=== PATIENT | female | born 1995 | race Caucasian/White ===

== ENCOUNTER 2020-06-13 16:07 | Emergency (ER) | payer MEDICAID, SELFPAY ==
[2020-06-13 18:26] VITALS: BP 131/69; PULSE 94; RESP 16; TEMP 36.9; O2SAT 99; BMI 34.3
--- NOTE | 2020-06-13 18:29 | US_ITS ---
EXAM: Pelvic Ultrasound CLINICAL INDICATION: 24-year-old female with pelvic pain COMPARISON: Pelvic ultrasound 06/27/2019 TECHNIQUE: The pelvis was evaluated using transabdominal and transvaginal imaging. Color Doppler imaging and spectral analysis of the bilateral ovaries was also performed. FINDINGS: Anteverted but retroflexed uterus measures 9.7 x 3.4 x 4.5 cm in longitudinal by AP by transverse dimension. The endometrial stripe is not thickened and measures 0.3 cm. There is a small amount of fluid within the endocervical canal. The left ovary measures approximately 2.5 x 2.8 x 3.1 cm contains a 2.5 cm cyst which demonstrates single thin vascular septation. The right ovary measures approximately 1.8 x 1.5 x 2.4 cm and is normal. Spectral analysis reveals normal arterial and venous waveforms in the bilateral ovaries. There is no free fluid in the pelvis. US/US pelvic ovarian doppler IMPRESSION: 1. Arterial and venous waveforms demonstrated within both ovaries. 2. 2.5 cm cyst of the left ovary which contains a single thin vascular septation. 3. Normal thickness endometrial stripe. There is a small amount of fluid within the endocervical canal.
--- NOTE | 2020-06-13 18:29 | US_ITS ---
EXAM: Pelvic Ultrasound CLINICAL INDICATION: 24-year-old female with pelvic pain COMPARISON: Pelvic ultrasound 06/27/2019 TECHNIQUE: The pelvis was evaluated using transabdominal and transvaginal imaging. Color Doppler imaging and spectral analysis of the bilateral ovaries was also performed. FINDINGS: Anteverted but retroflexed uterus measures 9.7 x 3.4 x 4.5 cm in longitudinal by AP by transverse dimension. The endometrial stripe is not thickened and measures 0.3 cm. There is a small amount of fluid within the endocervical canal. The left ovary measures approximately 2.5 x 2.8 x 3.1 cm contains a 2.5 cm cyst which demonstrates single thin vascular septation. The right ovary measures approximately 1.8 x 1.5 x 2.4 cm and is normal. Spectral analysis reveals normal arterial and venous waveforms in the bilateral ovaries. There is no free fluid in the pelvis. US/US pelvic complete IMPRESSION: 1. Arterial and venous waveforms demonstrated within both ovaries. 2. 2.5 cm cyst of the left ovary which contains a single thin vascular septation. 3. Normal thickness endometrial stripe. There is a small amount of fluid within the endocervical canal.
--- NOTE | 2020-06-13 18:29 | US_ITS ---
EXAM: Pelvic Ultrasound CLINICAL INDICATION: 24-year-old female with pelvic pain COMPARISON: Pelvic ultrasound 06/27/2019 TECHNIQUE: The pelvis was evaluated using transabdominal and transvaginal imaging. Color Doppler imaging and spectral analysis of the bilateral ovaries was also performed. FINDINGS: Anteverted but retroflexed uterus measures 9.7 x 3.4 x 4.5 cm in longitudinal by AP by transverse dimension. The endometrial stripe is not thickened and measures 0.3 cm. There is a small amount of fluid within the endocervical canal. The left ovary measures approximately 2.5 x 2.8 x 3.1 cm contains a 2.5 cm cyst which demonstrates single thin vascular septation. The right ovary measures approximately 1.8 x 1.5 x 2.4 cm and is normal. Spectral analysis reveals normal arterial and venous waveforms in the bilateral ovaries. There is no free fluid in the pelvis. US/US transvaginal IMPRESSION: 1. Arterial and venous waveforms demonstrated within both ovaries. 2. 2.5 cm cyst of the left ovary which contains a single thin vascular septation. 3. Normal thickness endometrial stripe. There is a small amount of fluid within the endocervical canal.
[2020-06-13 18:55] LABS: Glucose Urine UA NEG (NEG); Leukocyte Esterase Urine NEG (NEG); Nitrite Urine NEG (NEG); Specific Gravity - Urine >= 1.030 (1.005-1.025); Urine Blood NEG (NEG); Urine Ketones 5 MG/DL (NEG); Urine Protein NEG (NEG-TRACE)
[2020-06-13 18:56] LABS: Appearance Urine CLEAR; Color Urine YELLOW
[2020-06-13 18:58] LABS: UPreg QC Valid YES; Urine Pregnancy NEGATIVE (NEGATIVE)
[2020-06-13 19:02] LABS: RBC Urine 0 /HPF (0); Squamous Epithelial Cell Urine 2+ /LPF; WBC Urine 0 /HPF (0-4)
[2020-06-13 19:21] LABS: Basophils Percent Auto 0.7 % (0-2); Eosinophils Percent Auto 2.2 % (0-4); Hematocrit 40.6 % (37-47); Hemoglobin 13.3 g/dl (12.0-16.0); Imm Gran Abs Auto 0.02 X10*3/uL (0.00-0.03); Imm Gran Pct Auto 0.2 % (0.0-0.4); Lymphocytes Percent Auto 34.2 % (20-40); Mean Corpuscular HGB Conc 32.8 g/dl (31.0-35.0); Mean Corpuscular Hemoglobin 26.8 pg (27.0-33.0); Mean Corpuscular Volume 81.9 fL (80-98); Monocytes Percent Auto 4.8 % (2-11); Neutrophils Absolute Auto 4.7 X10*3/uL (2.0-8.3); Neutrophils Percent Auto 57.9 % (45-73); Platelet Count 284 X10*3/uL (160-400); Red Blood Count 4.96 X10*6/uL (4.20-5.50); Red Cell Distribution Width 13.8 % (11.0-16.0); White Blood Count 8.1 X10*3/uL (4.8-10.8)
[2020-06-13 19:22] LABS: Basophils Absolute Auto 0.1 X10*3/uL (0.0-0.2); Eosinophils Absolute Auto 0.2 X10*3/uL (0.0-0.4); Lymphocytes Absolute Auto 2.8 X10*3/uL (1.2-4.9); Monocytes Absolute Auto 0.4 X10*3/uL (0.1-1.2)
[2020-06-13 19:23] LABS: MANUAL DIFF FLAG NO
[2020-06-13 19:27] LABS: INTERNATIONAL NORM RATIO 1.1 (0.9-1.1); Prothrombin Time 13.1 SEC (10.8-13.0)
[2020-06-13 19:29] LABS: Partial Thromboplastin Time 31.7 SEC (24.1-38.0)
[2020-06-13 19:51] LABS: Alanine Aminotransferase 21 U/L (0-31); Albumin Level 4.5 g/dL (3.5-5.0); Alkaline Phosphatase 56 U/L (39-117); Anion Gap 12 (12-20); Aspartate Amino Transferase 18 U/L (5-31); Bilirubin Total 0.4 mg/dL (0.0-1.0); Blood Urea Nitrogen 7 mg/dL (9-16); Calcium 9.1 mg/dL (8.4-10.2); Carbon Dioxide 25 mmol/L (22-29); Chloride 105 mmol/L (96-108); Creatinine Clr Calc Pharmacy 99.2; Estimated Glomerular Filt Rate > 60; Glucose Random 92 mg/dL (60-115); Potassium 3.7 mmol/l (3.3-5.1); Sodium 138 mmol/L (135-145); Total Protein 7.4 g/dL (6.5-8.0)
--- NOTE | 2020-06-13 20:26 | ED_ITS ---
HPI - Abdominal Pain General Chief Complaint: Abdominal Pain Stated Complaint: Lower left abdominal pain Time Seen by Provider: 06/13/20 18:29 Source: patient Mode of arrival: ambulatory Limitations: no limitations History of Present Illness HPI narrative: left-sided lower abdomen/pelvic pain for past 2 days. No vaginal discharge or dysuria. No concern for STI. States similar type pain in the past when she was getting control and had ovarian cyst. MD elicited complaint: abdominal pain Onset (ago): day(s) Pain Consistency: intermittent Location: pelvis (Left side) Severity: mild Quality: cramping and aching Radiation: none Migration to: no migration Exacerbating factors: nothing Relieving factors: nothing Associated symptoms: denies other symptoms Related Data Previous Rx's Medication Instructions Recorded naproxen 500 mg PO BID PRN #14 tab 06/13/20 Allergies Allergy/AdvReac Type Severity Reaction Status Date / Time No Known Allergies Allergy Verified 06/13/20 18:33 [No Known Allergies*] Review of Systems Review of Systems Constitutional: No Weight loss, No Fever, No Chills, No Night Sweats, No Fatigue, No Malaise ENT/Mouth: No Hearing loss, No Ear Pain, No Nasal Congestion, No Sinus Pain, No Hoarseness, No sore throat, No Rhinorrhea, No Swallowing Difficulty Eyes: No Eye Pain, No Swelling, No Redness, No Foreign Body, No Discharge, No Vision Changes Cardiovascular: No Chest Pain, No SOB, No Dyspnea on Exertion, No Orthopnea, No Edema, No Palpitations Respiratory: No Cough, No Sputum, No Wheezing, No Smoke Exposure, No Dyspnea Gastrointestinal: No Nausea, No Vomiting, No Diarrhea, No Constipation, + abdominal Pain, No Hematochezia, No Melena Genitourinary: no irregular bleeding, No Dysuria, No Urinary Frequency, No Hematuria, No Urinary Incontinence, No Urgency, No Flank Pain, No Urinary Flow Changes, No Hesitancy Musculoskeletal: No joint pain, No Myalgias, No Joint Swelling Skin: No Skin Lesions, No rash Neuro: No Weakness, No Numbness, No Paresthesias, No Loss of Consciousness, No Dizziness, No Headache Psych: No Social Issues Heme/Lymph: No Bruising, No Bleeding,No Lymphadenopathy Endocrine: No Polyuria, No Polydipsia, No Temperature Intolerance Yes all other systems are reviewed and are negative Physical Exam Vital Signs: Vital Signs: Last Vital Signs Temp 98.4 F 06/13/20 18:26 Pulse 94 06/13/20 18:26 Resp 16 06/13/20 18:26 BP 131/69 06/13/20 18:26 Pulse Ox 99 06/13/20 18:26 Body Mass Index 34.3 Reviewed Const: General: cooperative and healthy appearing; No acute distress or intoxicated appearing Nutritional Appearance: average body habitus Orientation/consciousness: patient oriented x3 HENMT: Head: Yes normal to inspection Ears: hearing grossly normal bilaterally Eyes: General: appearance normal, both eyes and all related structures Visual Muñoz: normal visual muñoz by confrontation Neck: Neck: Yes normal visual inspection and No tender Thyroid: Thyroid normal Chest: Chest palpation & inspection: normal inspection of the chest Resp: Effort & Inspection: normal respiratory effort Cardio: Jugular venous distension: no JVD Rhythm: regular rhythm Heart sounds: S1 normal heart sound present and S2 normal heart sound present GI: Inspection: Yes normal to inspection Palpation (GI): Soft to palpation and nontender Percussion: Yes normal to percussion Auscultation: normal bowel sounds : General: Yes no CVA tenderness Back/Spine/Pelvis: Back: no CVA tenderness Skin: General skin exam: no rashes or lesions noted Neuro: General: patient oriented x3 Extrem: General: Yes normal to inspection Course Course Course Narrative: In review left-sided pelvic pain ongoing for the past feels similar to prior ovarian cyst. No symptoms otherwise no GI symptoms. Will need labs including UA also concerned her. The weekly and would like a preg adrian test. Will check this rule out , ectopic, ovarian cyst torsion less likely. Reevaluation(s) Reevaluation #1: Labs overall stable. UA noninfected. negative. Ultrasound shows 1. Arterial and venous waveforms demonstrated within both ovaries. 2. 2.5 cm cyst of the left ovary which contains a single thin vascular septation. 3. Normal thickness endometrial stripe. There is a small amount of fluid within the endocervical canal. Well nontoxic appearing minimal to no pain. Will discharge home with NSAID aware to avoid this if she is trying to conceive but she states that she has not. 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 Stable for discharge. MDM - Abdominal Pain Lab Data Result diagrams: 06/13/20 19:16 06/13/20 19:16 Labs: Lab Results 06/13/20 06/13/20 06/13/20 Range/Units 18:46 19:16 19:16 WBC 8.1 (4.8-10.8) X10*3/uL RBC 4.96 (4.20-5.50) X10*6/uL Hgb 13.3 (12.0-16.0) g/dl Hct 40.6 (37-47) % MCV 81.9 (80-98) fL MCH 26.8 L (27.0-33.0) pg MCHC 32.8 (31.0-35.0) g/dl RDW 13.8 (11.0-16.0) % Plt Count 284 (160-400) X10*3/uL MPV 10.0 (9.4-12.3) fL Immature Gran % (Auto) 0.2 (0.0-0.4) % Neut % (Auto) 57.9 (45-73) % Lymph % (Auto) 34.2 (20-40) % Miller % (Auto) 4.8 (2-11) % Eos % (Auto) 2.2 (0-4) % Baso % (Auto) 0.7 (0-2) % Lymph # (Auto) 2.8 (1.2-4.9) X10*3/uL Miller # (Auto) 0.4 (0.1-1.2) X10*3/uL Eos # (Auto) 0.2 (0.0-0.4) X10*3/uL Baso # (Auto) 0.1 (0.0-0.2) X10*3/uL Abs Immat Gran (auto) 0.02 (0.00-0.03) X10*3/uL Absolute Neuts (auto) 4.7 (2.0-8.3) X10*3/uL Absolute Nucleated RBC 0.000 (0.0-0.012) X10*3/uL Nucleated RBC % (auto) 0.0 (0.0-0.2) /100WBC PT 13.1 H (10.8-13.0) SEC INR 1.1 (0.9-1.1) APTT 31.7 (24.1-38.0) SEC Sodium (135-145) mmol/L Potassium (3.3-5.1) mmol/l Chloride (96-108) mmol/L Carbon Dioxide (22-29) mmol/L Anion Gap (12-20) BUN (9-16) mg/dL Creatinine (0.5-1.4) mg/dL Estim Creat Clear Calc Estimated GFR Random Glucose (60-115) mg/dL Calcium (8.4-10.2) mg/dL Total Bilirubin (0.0-1.0) mg/dL AST (5-31) U/L ALT (0-31) U/L Alkaline Phosphatase (39-117) U/L Total Protein (6.5-8.0) g/dL Albumin (3.5-5.0) g/dL Urine Color YELLOW Urine Appearance CLEAR Urine pH 6.0 (5.0-8.0) Ur Specific [place] >= 1.030 H (1.005-1.025) Urine Protein NEG (NEG-TRACE) MG/DL Urine Glucose (UA) NEG (NEG) MG/DL Urine Ketones 5 (NEG) MG/DL Urine Blood NEG (NEG) Urine Nitrite NEG (NEG) Ur Leukocyte Esterase NEG (NEG) Urine RBC 0 (0) /HPF Urine WBC 0 (0-4) /HPF Ur Squamous Epith Cells 2+ /LPF Urine Bacteria NONE /LPF Urine Test NEGATIVE (NEGATIVE) 06/13/20 Range/Units 19:16 WBC (4.8-10.8) X10*3/uL RBC (4.20-5.50) X10*6/uL Hgb (12.0-16.0) g/dl Hct (37-47) % MCV (80-98) fL MCH (27.0-33.0) pg MCHC (31.0-35.0) g/dl RDW (11.0-16.0) % Plt Count (160-400) X10*3/uL MPV (9.4-12.3) fL Immature Gran % (Auto) (0.0-0.4) % Neut % (Auto) (45-73) % Lymph % (Auto) (20-40) % Miller % (Auto) (2-11) % Eos % (Auto) (0-4) % Baso % (Auto) (0-2) % Lymph # (Auto) (1.2-4.9) X10*3/uL Miller # (Auto) (0.1-1.2) X10*3/uL Eos # (Auto) (0.0-0.4) X10*3/uL Baso # (Auto) (0.0-0.2) X10*3/uL Abs Immat Gran (auto) (0.00-0.03) X10*3/uL Absolute Neuts (auto) (2.0-8.3) X10*3/uL Absolute Nucleated RBC (0.0-0.012) X10*3/uL Nucleated RBC % (auto) (0.0-0.2) /100WBC PT (10.8-13.0) SEC INR (0.9-1.1) APTT (24.1-38.0) SEC Sodium 138 (135-145) mmol/L Potassium 3.7 (3.3-5.1) mmol/l Chloride 105 (96-108) mmol/L Carbon Dioxide 25 (22-29) mmol/L Anion Gap 12 (12-20) BUN 7 L (9-16) mg/dL Creatinine 0.77 (0.5-1.4) mg/dL Estim Creat Clear Calc 99.2 Estimated GFR > 60 Random Glucose 92 (60-115) mg/dL Calcium 9.1 (8.4-10.2) mg/dL Total Bilirubin 0.4 (0.0-1.0) mg/dL AST 18 (5-31) U/L ALT 21 (0-31) U/L Alkaline Phosphatase 56 (39-117) U/L Total Protein 7.4 (6.5-8.0) g/dL Albumin 4.5 (3.5-5.0) g/dL Urine Color Urine Appearance Urine pH (5.0-8.0) Ur Specific [place] (1.005-1.025) Urine Protein (NEG-TRACE) MG/DL Urine Glucose (UA) (NEG) MG/DL Urine Ketones (NEG) MG/DL Urine Blood (NEG) Urine Nitrite (NEG) Ur Leukocyte Esterase (NEG) Urine RBC (0) /HPF Urine WBC (0-4) /HPF Ur Squamous Epith Cells /LPF Urine Bacteria /LPF Urine Test (NEGATIVE) Discharge Plan Discharge Clinical Impression: Ovarian cyst Patient Disposition: Home, Self-Care Instructions: Ovarian Cyst (ED) Additional Instructions: Home care as instructed Return if any concern or worsening symptoms including worsening abdominal pain, vaginal bleeding, fever. 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
[2020-06-13] MEDS: Acetaminophen 325 MG TABLET 650 MG PO (20:56)
== END 2020-06-13 21:35 | disposition home or self-care (01) ==
PROVIDERS: Nurse Practitioner Primary Care; Emergency Provider Emergency Medicine; PCP Internal Medicine
DX: N83.202 Unspecified ovarian cyst, left side (principal); R10.32 Left lower quadrant pain
CPT/HCPCS: 36415; 76830; 76856; 80053; 81001; 81025; 85025; 85610; 85730; 93975; 99284

== ENCOUNTER 2020-11-27 10:25 | Emergency (ER) | payer MEDICAID, SELFPAY ==
--- NOTE | ~2020-11-27 | XR_ITS ---
EXAMINATION: LUMBAR SPINE AND RIGHT SHOULDER X-RAY CLINICAL INFORMATION: Pain post fall COMPARISON: None TECHNIQUE: 3 views of the lumbar spine and 3 views of the right shoulder FINDINGS: Lumbar spine: Bone alignment is normal. No fracture or dislocation is seen. Disc spaces are normal. Paraspinal soft tissues are normal. Right shoulder: Bone alignment is normal. No fracture or dislocation is seen. The joint spaces are normal. There is soft tissue calcification adjacent to the greater tuberosity suggestive of calcific bursitis or tendinitis. XR/XR shoulder RT min 2V IMPRESSION: Lumbar spine: Unremarkable exam. Right shoulder: No fracture or dislocation. Calcific bursitis or tendinitis.
--- NOTE | ~2020-11-27 | XR_ITS ---
EXAMINATION: LUMBAR SPINE AND RIGHT SHOULDER X-RAY CLINICAL INFORMATION: Pain post fall COMPARISON: None TECHNIQUE: 3 views of the lumbar spine and 3 views of the right shoulder FINDINGS: Lumbar spine: Bone alignment is normal. No fracture or dislocation is seen. Disc spaces are normal. Paraspinal soft tissues are normal. Right shoulder: Bone alignment is normal. No fracture or dislocation is seen. The joint spaces are normal. There is soft tissue calcification adjacent to the greater tuberosity suggestive of calcific bursitis or tendinitis. XR/XR lumbar spine 2-3V IMPRESSION: Lumbar spine: Unremarkable exam. Right shoulder: No fracture or dislocation. Calcific bursitis or tendinitis.
[2020-11-27 10:42] VITALS: BP 122/74; PULSE 87; RESP 18; TEMP 36.6; O2SAT 100; BMI 43.0
[2020-11-27] MEDS: Acetaminophen 325 MG TABLET 650 MG PO (14:16)
[2020-11-27] MEDS: Ibuprofen 600 MG TABLET PO (14:17)
[2020-11-27] MEDS: Lidocaine 4 % Patch ADH..PATCH 1 PATCH TRANSDERMA (14:17)
[2020-11-27 14:52] VITALS: BP 116/58; PULSE 88; RESP 16; TEMP 37; O2SAT 96
--- NOTE | 2020-11-27 15:07 | ED.BACK ---
HPI - Back Pain/Injury General Chief Complaint: Back Pain/Injury <ISABELL Tabares Last Filed: 11/27/20 16:36> Stated Complaint: fall left side <ISABELL Tabares Last Filed: 11/27/20 16:36> Time Seen by Provider: 11/27/20 13:22 <ISABELL Tabares Last Filed: 11/27/20 16:36> Source: patient and secondary connector armature <ISABELL Tabares Last Filed: 11/27/20 16:36> Limitations: language barrier <ISABELL Tabares Last Filed: 11/27/20 16:36> History of Present Illness HPI Narrative: 25-year-old female with no significant past medical history presents to emergency department with back pain after a fall yesterday. She states she tripped and fell approximately 2 steps yesterday while holding her son. States she fell onto her right side. Since then she has been complaining of right shoulder pain and back pain. Immediately after she put some dizziness but then sat down on the dizziness resolved. No preceding symptoms prior to the fall. She denies head injury, LOC. No anticoagulant use. She denies chest injury, abdominal pain incontinence, weakness. She has not taken anything for her pain. <ISABELL Tabares Last Filed: 11/27/20 16:36> Related Data Home Medications: Home Medications Medication Instructions Recorded Confirmed medroxyprogesterone 150 mg/mL 150 mg IM [id number] 12/18/20 intramuscular syringe Previous Rx's Medication Instructions Recorded naproxen 500 mg PO BID PRN #14 tab 06/13/20 ibuprofen 600 mg PO Q6H PRN 7 Days #28 tab 11/27/20 <ISABELL Tabares Last Filed: 11/27/20 16:36> Allergies/Adverse Reactions: Allergies Allergy/AdvReac Type Severity Reaction Status Date / Time No Known Allergies Allergy Verified 12/18/20 16:14 [No Known Allergies*] <ISABELL Tabares Last Filed: 11/27/20 16:36> Review of Systems Constitutional: Constitutional: Denies fever(s) and Denies headache(s) <ISABELL Tabares Last Filed: 11/27/20 16:36> Eyes: Eyes: Reports no additional eye complaints <Tika Mena PA - Last Filed: 11/27/20 16:36> ENT: Denies facial pain and Denies headache(s) <Tika Mena PA - Last Filed: 11/27/20 16:36> Comments: no facial trauma <Tika Mena PA - Last Filed: 11/27/20 16:36> Cardiovascular: Cardiovascular: Denies chest pain, Denies syncope and Denies dyspnea <Tika Mena PA - Last Filed: 11/27/20 16:36> Respiratory: Respiratory: Denies dyspnea <ISABELL Tabares - Last Filed: 11/27/20 16:36> Gastrointestinal: Gastrointestinal: Denies abdominal pain <Tika Mena PA - Last Filed: 11/27/20 16:36> Genitourinary: Genitourinary: Denies urinary incontinence <ISABELL Tabares - Last Filed: 11/27/20 16:36> Musculoskeletal: Comments: right shoulder pain <Tika Mena PA - Last Filed: 11/27/20 16:36> Neurologic: Denies syncope and Denies headache(s) <Tika Mena PA - Last Filed: 11/27/20 16:36> Hematologic/Lymphatic: Hematologic/Lymphatic: Denies easy bleeding <Tika Mena PA - Last Filed: 11/27/20 16:36> [facility] Past Medical History Medical History: Medical History No known health problems <ISABELL Tabares - Last Filed: 11/27/20 16:36> Social History Social History: Social History Alcohol intake: never Patient Tobacco Use Status: Never used Tobacco <ISABELL Tabares - Last Filed: 11/27/20 16:36> Physical Exam Vital Signs: Vital Signs: Last Vital Signs Temp 98.6 F 11/27/20 14:52 Pulse 88 11/27/20 14:52 Resp 16 11/27/20 14:52 BP 116/58 L 11/27/20 14:52 Pulse Ox 96 11/27/20 14:52 Body Mass Index 43.0 <ISABELL Tabares - Last Filed: 11/27/20 16:36> Vital Signs: Last Vital Signs Temp 98.6 F 11/27/20 14:52 Pulse 88 11/27/20 14:52 Resp 16 11/27/20 14:52 BP 116/58 L 11/27/20 14:52 Pulse Ox 96 11/27/20 14:52 Body Mass Index 43.0 <Andrés Vidal MD - Last Filed: 01/05/21 08:55> Const: Other: Sitting upright in the chair <ISABELL Tabares - Last Filed: 11/27/20 16:36> General: cooperative <ISABELL Tabares - Last Filed: 11/27/20 16:36> Orientation/consciousness: patient oriented x3 <ISABELL Tabares - Last Filed: 11/27/20 16:36> HENMT: Head: Yes normocephalic and Yes atraumatic <ISABELL Tabares - Last Filed: 11/27/20 16:36> Eyes: Pupils: Equal, round and reactive pupils present <ISABELL Tabares - Last Filed: 11/27/20 16:36> EOM: EOMs intact bilaterally <ISABELL Tabares - Last Filed: 11/27/20 16:36> Neck: Other: No midline tenderness <ISABELL Tabares - Last Filed: 11/27/20 16:36> Neck: Yes full ROM, Yes trachea midline and Yes supple <ISABELL Tabares - Last Filed: 11/27/20 16:36> Chest: Chest palpation & inspection: normal inspection of the chest <ISABELL Tabares - Last Filed: 11/27/20 16:36> Resp: Effort & Inspection: normal respiratory effort and able to speak in complete sentences <ISABELL Tabares - Last Filed: 11/27/20 16:36> Auscultation: clear to auscultation bilaterally <ISABELL Tabares - Last Filed: 11/27/20 16:36> Cardio: Rate: regular rate <ISABELL Tabares - Last Filed: 11/27/20 16:36> Rhythm: regular rhythm <ISABELL Tabares - Last Filed: 11/27/20 16:36> GI: Inspection: No distended <ISABELL Tabares - Last Filed: 11/27/20 16:36> Palpation (GI): Soft to palpation and nontender <ISABELL Tabares - Last Filed: 11/27/20 16:36> Back/Spine/Pelvis: Other: Diffuse tenderness throughout spine seems to be more focal to her lower spine, no step-offs, no ecchymosis, no obvious deformity, able to sit upright and lying back flat <ISABELL Tabares - Last Filed: 11/27/20 16:36> Skin: Other: Intact <ISABELL Tabares - Last Filed: 11/27/20 16:36> Neuro: Other: Steady gait <ISABELL Tabares - Last Filed: 11/27/20 16:36> General: patient oriented x3 <ISABELL Tabares - Last Filed: 11/27/20 16:36> Cranial nerves: Yes Equal, round and reactive pupils present <ISABELL Tabares - Last Filed: 11/27/20 16:36> Extrem: Other: Right upper extremity-positive palpable radial pulse, limited range of motion of the right shoulder secondary to pain, no obvious deformities, no ecchymosis, no swelling, compartment soft, neurovascularly intact <ISABELL Tabares - Last Filed: 11/27/20 16:36> Psych: Affect: normal affect <ISABELL Tabares - Last Filed: 11/27/20 16:36> Course Course Course Narrative: The patient states her pain has improved with the medications. Her lumbar plain film was negative. Her shoulder film shows calcific bursitis or tendonitis, no fracture, will give supportive management. <ISABELL Tabares Last Filed: 11/27/20 16:36> I have reviewed the chart <Andrés Vidal MD - Last Filed: 01/05/21 08:55> Reevaluation(s) Reevaluation #1: FINDINGS: Lumbar spine: Bone alignment is normal. No fracture or dislocation is seen. Disc spaces are normal. Paraspinal soft tissues are normal. Right shoulder: Bone alignment is normal. No fracture or dislocation is seen. The joint spaces are normal. There is soft tissue calcification adjacent to the greater tuberosity suggestive of calcific bursitis or tendinitis. XR/XR shoulder RT min 2V IMPRESSION: Lumbar spine: Unremarkable exam. Right shoulder: No fracture or dislocation. Calcific bursitis or tendinitis. <ISABELL Tabares Last Filed: 11/27/20 16:36> MDM - Back Pain/Injury MDM Narrative Medical decision making narrative: 25-year-old female presenting to the emergency department after fall yesterday complaining of right shoulder and back pain Vital stable, nontoxic appearing, hemodynamically stable Patient denies hitting her head, no LOC, no anticoagulant use, lower concern for intracranial pathology. She has diffuse tenderness to her spine but it seems to be more localized to her lumbar spine therefore plane from a plain film. She has no red flags for a portal pressure. For plan for plain film of her right shoulder due to pain with movement. Her compartments were soft. She is otherwise neurovascularly intact. No evidence of trauma to her chest or abdomen. Her pelvis is stable. Lower extremities are atraumatic. She has not taken anything for her pain, will give her ibuprofen and Tylenol. She denies chance of , she is on a Depo injection for contraception. Fall was mechanical, not syncope, no preceding symptoms prior to the fall. <ISABELL Tabares - Last Filed: 11/27/20 16:36> Discharge Plan Discharge Clinical Impression: Fall, Back pain, Sprain of shoulder, right <ISABELL Tabares Last Filed: 11/27/20 16:36> Patient Disposition: Home, Self-Care <ISABELL Tabares Last Filed: 11/27/20 16:36> Instructions: Back Pain (ED), Shoulder Pain (ED) <ISABELL Tabares Last Filed: 11/27/20 16:36> Additional Instructions: Your x-rays of your lower back right shoulder did not show any broken bones. Please return if your symptoms worsen, worsening pain, difficulty walking, numbness, weakness, tingling, loss of bladder or bowel function, chest pain, abdominal pain, or any other concerning symptoms. You are probably going to feel sore today, please get plenty of rest. You may use hot showers to help relax her muscles. Take Tylenol or ibuprofen as directed for pain if needed. <ISABELL Tabares - Last Filed: 11/27/20 16:36> Prescriptions: New ibuprofen 600 mg tablet 600 mg PO Q6H PRN (Reason: pain) 7 Days Qty: 28 RF: 0 No Action naproxen 500 mg tablet 500 mg PO BID PRN (Reason: pain) Qty: 14 RF: 0 medroxyprogesterone [Depo-Provera] 150 mg/mL syringe 150 mg IM [id number] RF: 0 <ISABELL Tabares - Last Filed: 11/27/20 16:36> Interventions: ED Discharge Assessment Last Done: 11/27/20 15:35 <ISABELL Tabares - Last Filed: 11/27/20 16:36> Discharge Date/Time: 11/27/20 15:35 <ISABELL Tabares - Last Filed: 11/27/20 16:36> Print Language: Georgian <ISABELL Tabares - Last Filed: 11/27/20 16:36>
== END 2020-11-27 15:35 | disposition home or self-care (01) ==
PROVIDERS: Emergency Provider Emergency Medicine; PCP Internal Medicine
DX: S43.401A Unspecified sprain of right shoulder joint, initial encounter (principal); M54.9 Dorsalgia, unspecified; W01.0XXA Fall on same level from slipping, tripping and stumbling without subsequent striking against object, initial encounter; Y93.9 Activity, unspecified; Y92.9 Unspecified place or not applicable; Y99.9 Unspecified external cause status
CPT/HCPCS: 72100; 73030; 99283; 99284

== ENCOUNTER → 2020-12-18 16:14 | Outpatient (BNVA) | payer MEDICAID, SELFPAY | PROVIDERS: PCP Internal Medicine; Visit Provider Obstetrics & Gynecology ==

== ENCOUNTER 2021-03-28 11:07 | Outpatient (REF) | payer MEDICAID, SELFPAY ==
--- NOTE | ~2021-03-28 | US_ITS ---
EXAMINATION: US PELVIC AND TRANSVAGINAL CLINICAL INFORMATION: Ovarian cyst. Vaginal bleeding. LMP June 2020. Patient on control. COMPARISON: Most recent pelvic ultrasound dated 06/13/2020 TECHNIQUE: Ultrasound of the pelvis is performed using both transabdominal and transvaginal transducers along with Doppler. Transvaginal imaging is performed due to inadequate visualization transabdominally. FINDINGS: Uterus: The uterus is anteverted and retroflexed and measures 10.3 x 3.6 x 4.9 cm. The double wall endometrial thickness is 0.6 mm. The uterus is smooth in contour and has normal myometrial echogenicity. No visible fibroid. Adnexa: Both ovaries are visualized. There is normal color-flow to the adnexa. There is no ovarian torsion. There is no pelvic ascites or fluid collection. Right ovarian follicles. Left ovarian probable dominant follicle measuring up to 1.4 cm. A left ovarian simple cyst versus dominant follicle previously measured up to 2.5 cm. Right ovary measures 3 x 1.7 x 2.3 cm. Right ovarian volume of 6.1 mL. Left ovary measures 2.7 x 1.5 x 1.7 cm. Left ovarian volume of 3.6 mL. US/US pelvic and transvaginal IMPRESSION: 1. Left ovarian dominant follicle measuring up to 1.4 cm. A previously seen left ovarian dominant follicle versus simple cyst measured 2.5 cm. 2. Otherwise unremarkable examination.
== END 2021-03-28 11:08 | disposition home or self-care (01) ==
LOC: HO.US 11:07
PROVIDERS: PCP Internal Medicine; Visit Provider Obstetrics & Gynecology
DX: N83.299 Other ovarian cyst, unspecified side (principal)
CPT/HCPCS: 76830; 76856

== ENCOUNTER → 2021-04-11 14:47 | Outpatient (BNVA) | payer MEDICAID, SELFPAY | PROVIDERS: Visit Provider Obstetrics & Gynecology ==

== ENCOUNTER 2021-12-19 13:51 | Outpatient (REF) | payer MEDICAID, SELFPAY ==
--- NOTE | ~2021-12-19 | US_ITS ---
EXAMINATION: US PELVIS CLINICAL INFORMATION: Left ovarian cyst COMPARISON: Pelvic ultrasound 03/28/2021 TECHNIQUE: Ultrasound of the pelvis is performed using both transabdominal and transvaginal transducers along with Doppler. Transvaginal imaging is performed due to inadequate visualization transabdominally. FINDINGS: Uterus: The uterus is anteverted and measures 11.8 x 3.5 x 7.0 cm. The double wall endometrial thickness is 5 mm. The uterus is smooth in contour and has normal myometrial echogenicity. No visible fibroid. Adnexa: Both ovaries are visualized. There is normal color flow to the adnexa. There is no ovarian torsion. There is no pelvic ascites or fluid collection. Right ovary measures 2.8 x 1.8 x 2.4 cm. Left ovary measures 3.4 x 2.4 x 2.1 cm. A 2 cm dominant follicle is seen. US/US pelvic and transvaginal IMPRESSION: A 2 cm dominant left ovarian follicle, for which no follow-up imaging is recommended.
== END 2021-12-19 13:52 | disposition home or self-care (01) ==
LOC: HO.US 13:51
PROVIDERS: Visit Provider Internal Medicine
DX: N83.202 Unspecified ovarian cyst, left side (principal)
CPT/HCPCS: 76830; 76856

== ENCOUNTER 2022-05-18 13:17 | Emergency (ER) | payer MEDICAID, SELFPAY ==
[2022-05-18 13:29] VITALS: BP 133/67; PULSE 120; RESP 18; TEMP 37.4; O2SAT 100; BMI 40.4
--- NOTE | 2022-05-18 13:29 | ED.FEVER ---
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 No difficulty breathing, chest pain, vomiting, diarrhea, headache, skin rash, neck pain or stiffness. Patient is here with children who have similar symptoms. Immunizations are up-to-date Related Data Home Medications Medication Instructions Recorded Confirmed medroxyprogesterone 150 mg/mL 150 mg IM [id number] 12/18/20 intramuscular syringe (Depo-Provera) Previous Rx's Medication Instructions Recorded ibuprofen 600 mg tablet 600 mg PO Q6H PRN fever or pain 05/18/22 #30 tabs oseltamivir 75 mg capsule (Tamiflu) 75 mg PO Q12H 5 days #10 caps 05/18/22 Allergies Allergy/AdvReac Type Severity Reaction Status Date / Time No Known Allergies Allergy Verified 04/11/21 14:48 [No Known Allergies*] Review of Systems Review of Systems: Yes all other systems are reviewed and are negative Constitutional: Constitutional: Reports no additional constitutional complaints, Denies body ache(s), Denies chills, Reports fever(s), Denies headache(s) and Denies weakness Eyes: Eyes: Reports no additional eye complaints and Denies change in vision ENT: Reports system reviewed and no additional complaints, except as documented, Denies dizziness, Denies headache(s), Denies nasal congestion, Denies nasal discharge and Denies neck pain Cardiovascular: Cardiovascular: Reports no additional cardiovascular complaints, Denies chest pain, Denies leg edema and Denies dyspnea Respiratory: Respiratory: Reports no additional respiratory complaints, Reports cough and Denies dyspnea Gastrointestinal: Gastrointestinal: Reports no additional gastrointestinal complaints, Denies abdominal pain, Denies diarrhea, Denies nausea and Denies vomiting Genitourinary: Genitourinary: Reports no additional female genitourinary complaints and Denies urinary incontinence Musculoskeletal: Musculoskeletal: Reports no additional musculoskeletal complaints, Reports back pain, Denies arthralgias, Denies joint swelling, Denies neck pain, Denies numbness and Denies tingling Integumentary/Breasts: Skin/Breast: Reports system reviewed and no additional complaints, except as docu and Denies rash Neurologic: Denies Abnormal speech present, Denies dizziness, Denies headache(s), Denies numbness, Denies tingling and Denies weakness PMFSH Past Medical History Attestation statement: The following information was validated with the patient. Source: old records reviewed and nursing notes reviewed Medical History No known health problems Surgical History Hx of appendectomy Hx of section Social History Social History Alcohol intake: never Patient Tobacco Use Status: Never used Tobacco Advance Directives: No Advance Directives Information Provided: No Physical Exam Vital Signs: Vital Signs: Last Vital Signs Temp 99.3 F 05/18/22 13:29 Pulse 120 H 05/18/22 13:29 Resp 18 05/18/22 13:29 BP 133/67 05/18/22 13:29 Pulse Ox 100 05/18/22 13:29 O2 Del Method 05/18/22 13:29 BMI result Body Mass Index 40.4 Const: General: cooperative, healthy appearing, comfortable and no acute distress Orientation/consciousness: patient oriented x3 Limitations: no limitations HEENT: Head: Yes normal to inspection Ears: hearing grossly normal bilaterally General nose exam: Normal external nose present Face and sinus: Yes normal facial exam Mouth: Normal oral and palatal mucosa present Throat: Yes posterior oropharynx normal Eyes: General: appearance normal, both eyes and all related structures Pupils: Equal, round and reactive pupils present Neck: Neck: Yes normal visual inspection Chest: Chest palpation & inspection: normal inspection of the chest Resp: Effort & Inspection: normal respiratory effort Auscultation: clear to auscultation bilaterally Cardio: Rate: regular rate Rhythm: regular rhythm Peripheral pulses: Peripheral pulses 2+ throughout GI: Inspection: Yes normal to inspection Palpation (GI): Soft to palpation and nontender Auscultation: normal bowel sounds Back/Spine/Pelvis: Thoracic/Lumbar Spine: thoracic and lumbar spine normal to inspection Skin: General skin exam: no rashes or lesions noted Neuro: General: patient oriented x3, no focal motor deficits and normal sensation to monofilament Cranial nerves: Yes Equal, round and reactive pupils present Cognition (Neuro): normal cognition Speech: No Abnormal speech present Gait exam (Neuro): Normal gait present Motor exam (neuro): 5/5 motor strength present throughout Extrem: General: Yes normal to inspection Course Course Course Narrative: This is rapid medical exam. Deferred additional HPI, ROS, PE to primary provider. 26 yo female here with cough, fever, congestion x several days. VSS. Will send testing for flu, covid, rsv. Reevaluation(s) Reevaluation #1: Testing for flu a is positive. All of the testing is negative. Patient initially complaining of abdominal pain and triage. Abdomen is soft nontender. Patient reports pain is mainly in her back which she describes as diffuse back tenderness. No midline tenderness, step-offs deformities. Pain is worsened with flexion and extension of the spine. Patient also complaining of diffuse body aches. Likely secondary to viral illness. Reviewed worrisome signs symptoms of when to return to the emergency room. Comfortable plan for discharge home. Mom wants Tamiflu. Aware of side effects. MDM - Fever MDM Narrative Medical decision making narrative: 26-year-old female here with fever, cough, body aches, back pain for 2 days. Patient here with children who have similar symptoms. Will send testing for flu, COVID, RSV Medical Records Attestation: I reviewed the patient's medical records. Lab Data Attestation: I reviewed the patient's lab results. Labs: Lab Results 05/18/22 Range/Units 13:34 Influenza Type A (PCR) POSITIVE A (Negative) Influenza Type B (PCR) NEGATIVE (Negative) RSV RNA Qual (PCR) NEGATIVE (Negative) SARS-CoV-2 RNA (RT-PCR) NEGATIVE (Negative) Discharge Plan Discharge Clinical Impression: Influenza A Patient Disposition: Home, Self-Care Instructions: Influenza (ED) Additional Instructions: Alterne motrin o tylenol para el dolor o la fiebre. Aumenta los l?luiz vidales. Prescriptions: New oseltamivir [Tamiflu] 75 mg capsule 75 mg PO Q12H 5 Days Qty: 10 0RF ibuprofen 600 mg tablet 600 mg PO Q6H PRN (Reason: fever or pain) Qty: 30 0RF No Action medroxyprogesterone [Depo-Provera] 150 mg/mL syringe 150 mg IM [id number] Referrals: Rubia Ramirez MD [Primary Care Provider] - 1 week Interventions: ED Discharge Assessment Last Done: 05/18/22 14:44 Discharge Date/Time: 05/18/22 14:44 Print Language: Anguill[place]
[2022-05-18 14:21] LABS: Influenza A PCR POSITIVE (Negative); Influenza B PCR NEGATIVE (Negative); Resp Syncy Virus RNA Qual PCR NEGATIVE (Negative); SARS COV2 PCR INHOUSE NEGATIVE (Negative)
== END 2022-05-18 14:44 | disposition home or self-care (01) ==
PROVIDERS: Nurse Practitioner Family; Emergency Provider Emergency Medicine; PCP Internal Medicine
DX: J10.1 Influenza due to other identified influenza virus with other respiratory manifestations (principal); R05.9 Cough, unspecified; M54.50 Low back pain, unspecified; R50.9 Fever, unspecified; M79.10 Myalgia, unspecified site; Z20.822 Contact with and (suspected) exposure to COVID-19; Z79.899 Other long term (current) drug therapy
CPT/HCPCS: 0241U; 99282; 99283

== ENCOUNTER 2023-02-02 09:26 | Outpatient (REF) | payer MEDICAID, SELFPAY ==
[2023-02-02 12:30] LABS: HBS Num1 38.21 mIU/mL (0-7.99); HBc Num1 0.12 S/CO (0.00-0.79); HIV AB/AG Nonreactive (Nonreactive); HIV Num 1 0.05 S/CO (0.00-0.99); Hepatitis A Antibody IgM 0.22 Index (0-0.79); Hepatitis B Core Antibody Nonreactive (Nonreactive); Hepatitis B Surface Antigen Negative (Negative); ~HepC Num1 0.05 S/CO (0.00-0.79); ~Hepatitis A Antibody IgM Nonreactive (Nonreactive); ~Hepatitis B Surface Antibody REACTIVE (Nonreactive); ~Hepatitis C Antibody Nonreactive (Nonreactive)
[2023-02-02 12:49] LABS: Syphilis Screen Nonreactive (Nonreactive)
[2023-02-02 18:53] LABS: CT PCR NOT DETECTED (Not Detect.); NG PCR NOT DETECTED (Not Detect.)
[2023-02-03 10:05] LABS: BV Int Neg Control Negative (Negative); BV Int Pos Control Positive (Positive)
== END 2023-02-02 09:27 | disposition home or self-care (01) ==
LOC: HO.HHCL 09:26
PROVIDERS: Visit Provider Internal Medicine
DX: Z11.4 Encounter for screening for human immunodeficiency virus [HIV] (principal); Z11.3 Encounter for screening for infections with a predominantly sexual mode of transmission; Z72.51 High risk heterosexual behavior
CPT/HCPCS: 0353U; 36415; 86704; 86706; 86709; 86780; 86803; 87340; 87389; 87480; 87510; 87660

== ENCOUNTER 2023-04-16 17:42 | Emergency (ER) | payer MEDICAID, SELFPAY ==
--- NOTE | ~2023-04-16 | US_ITS ---
EXAMINATION: US PELVIS CLINICAL INFORMATION: Left lower quadrant pain; heavy menses; the last menstrual period began 3 weeks prior, with continuous bleeding. COMPARISON: Pelvic ultrasound dated 12/19/2021. TECHNIQUE: Ultrasound of the pelvis is performed using both transabdominal and transvaginal transducers along with Doppler. Transvaginal imaging is performed due to inadequate visualization transabdominally. FINDINGS: Uterus: The uterus is anteverted and retroflexed. The uterus measures 8.3 x 3.7 x 5.2 cm. The double wall endometrial thickness is 4 mm. The uterus is smooth in contour and has normal myometrial echogenicity. No visible fibroid. Adnexa: Both ovaries are visualized. The ovaries show normal Doppler flow. There is normal color flow to the adnexa. There is no ovarian torsion. There is no pelvic ascites or fluid collection. Right ovary measures 2.9 x 2.3 x 1.5 cm, volume 5.2 mL. Left ovary measures 2.6 x 1.5 x 1.8 cm, volume 3.7 mL. US/US pelvic and transvaginal IMPRESSION: Unremarkable examination.
--- NOTE | 2023-04-16 17:55 | ED_ITS ---
HPI - General Adult General Chief complaint: Vaginal Bleeding Stated complaint: heavy vaginal bleeding Time Seen by Provider: 04/16/23 20:10 Source: patient, RN notes reviewed and old records reviewed Mode of arrival: ambulatory Limitations: no limitations History of Present Illness HPI narrative: 27-year-old female who denies any past medical history presents for evaluation of left lower abdominal pain and vaginal bleeding Patient states that she has been having vaginal bleeding for the last week She states that she got her Depo-Provera shot 1 week ago. She has been on this medication for over a year She also complains of lower abdominal pain on the left Denies any fevers, chills, abnormal vaginal discharge with the exception of the bleeding Denies any new sexual partners or concern for sexually 7 infections Denies any history abdominal surgery Related Data Home Medications Medication Instructions Recorded Confirmed medroxyprogesterone 150 mg/mL 150 mg IM [id number] 12/18/20 intramuscular syringe (Depo-Provera) Previous Rx's Medication Instructions Recorded ibuprofen 600 mg tablet 600 mg PO Q6H PRN fever or pain 05/18/22 #30 tabs oseltamivir 75 mg capsule (Tamiflu) 75 mg PO Q12H 5 days #10 caps 05/18/22 naproxen 500 mg tablet 500 mg PO BID PRN pain #20 tabs 04/16/23 Allergies Allergy/AdvReac Type Severity Reaction Status Date / Time No Known Allergies Allergy Verified 04/11/21 14:48 [No Known Allergies*] Review of Systems 2 Constitutional: Constitutional: Denies chills and Denies fever(s) Eyes: Eyes: Denies blurry vision Cardiovascular: Cardiovascular: Denies chest pain and Denies dyspnea Respiratory: Respiratory: Denies cough and Denies dyspnea Gastrointestinal: Gastrointestinal: Reports abdominal pain, Denies nausea and Denies vomiting Genitourinary: Genitourinary: Reports menorrhagia Musculoskeletal: Musculoskeletal: Denies back pain PMFSH Past Medical History Medical History No known health problems Surgical History Hx of appendectomy Hx of section Social History Social History Alcohol intake: never Patient Tobacco Use Status: Never used Tobacco Advance Directives: No Advance Directives Information Provided: No Physical Exam ED Vital Signs: Vital Signs - 24 hr 04/16/23 17:56 04/16/23 20:22 Temperature 98.3 F Pulse Rate 120 H 95 Respiratory Rate 16 16 Blood Pressure 108/72 110/76 Pulse Oximetry 97 97 Oxygen Delivery Method Room Air Room Air BMI result Body Mass Index 36.3 Const General: healthy appearing, comfortable, no acute distress, alert and awake Nutritional Appearance: well nourished Orientation/consciousness: patient oriented x3 HENMT Head: Yes normocephalic and Yes atraumatic Eyes Eyelids: Yes eyelids normal Conjunctivae: conjunctivae normal Sclerae: sclerae normal Corneas: corneas normal Pupils: Equal, round and reactive pupils present EOM: EOMs intact bilaterally Neck Neck: Yes full ROM Resp Effort & Inspection: normal respiratory effort, able to speak in complete sentences and not labored GI Inspection: No distended Palpation (GI): Soft to palpation, not firm, Tenderness to palpation present (GI) in the LLQ and suprapubicly, no guarding and not rigid General: Yes deferred Skin General skin exam: elasticity normal Neuro General: patient oriented x3 Cranial nerves: Yes Equal, round and reactive pupils present and Yes Bilaterally intact EOM present Cognition (Neuro): normal cognition Extrem Other: Moving all extremities well without any obvious deformities Course Course Course Narrative: This is an RME: Additional HPI, ROS, PE not included below will be deferred to primary provider. 27 yo f presents w/ 1 week vaginal bleedin. On deepo shot last shot one week ago recieved it late. If she exerts herself she finds herself having worse vagnal bleeding also complain of L sided abd pain. Going through 4 pads/hour completely saturated. Vitals hypotensive & tachycardic Medications Administered Discontinued Medications Generic Name Dose Route Start Last Admin Trade Name Freq PRN Reason Stop Dose Admin Ketorolac Tromethamine 30 mg 04/16/23 20:46 04/16/23 20:54 Ketorolac Tromethamine 30 Mg/Ml Vial IM 04/16/23 20:47 Not Given ONCE ONE Tramadol HCl 50 mg 04/16/23 21:01 04/16/23 21:23 Tramadol Hcl 50 Mg Tablet PO 04/16/23 21:02 50 mg ONCE ONE Administration Medical Decision Making Medical Decision Making [facility] Narrative: Patient presenting for evaluation of lower abdominal/pelvic pain with heavy vaginal bleeding. She was given her oral contraception injection 1 week ago at the onset of her symptoms. This is done her primary office she does not have an OBGYN. The patient is not . She has no fevers, chills, abnormal vaginal discharge or new sexual partners. This is less likely PID. Patient declined pelvic examination in the ED. she has a history of complex ovarian cyst. With an ultrasound to evaluate for ovarian cyst and help rule out ovarian torsion. She is not . Labs do not show any indication of UTI. Differential Diagnosis Differential Diagnoses: The differential diagnosis associated with the presentation includes Pelvic pain Dysmenorrhea Ovarian cyst PID less likely Lab Data [facility] Lab Attestation statement: I reviewed the patient's lab results. No leukocytosis or anemia. Normal platelet count. No significant electrolyte abnormalities 04/16/23 18:24 04/16/23 18:24 Labs: Lab Results 04/16/23 Range/Units 18:24 WBC 7.8 (4.8-10.8) X10*3/uL RBC 5.36 (4.20-5.50) X10*6/uL Hgb 14.7 (12.0-16.0) g/dl Hct 43.6 (37.0-47.0) % MCV 81.3 (80.0-98.0) fL MCH 27.4 (27.0-33.0) pg MCHC 33.7 (31.0-35.0) g/dl RDW 13.2 (11.0-16.0) % Plt Count 279 (160-400) X10*3/uL MPV 10.2 (9.4-12.3) fL Immature Gran % (Auto) 0.3 (0.0-0.4) % Neut % (Auto) 71.4 (45-73) % Lymph % (Auto) 23.7 (20-40) % [place] % (Auto) 3.7 (2-11) % Eos % (Auto) 0.4 (0-4) % Baso % (Auto) 0.5 (0-2) % Lymph # (Auto) 1.8 (1.2-4.9) X10*3/uL [place] # (Auto) 0.3 (0.1-1.2) X10*3/uL Eos # (Auto) 0.0 (0.0-0.4) X10*3/uL Baso # (Auto) 0.0 (0.0-0.2) X10*3/uL Abs Immat Gran (auto) 0.02 (0.00-0.03) X10*3/uL Absolute Neuts (auto) 5.5 (2.0-8.3) x10*3/uL Absolute Nucleated RBC 0.000 (0.0-0.012) X10*3/uL Nucleated RBC % (auto) 0.0 (0.0-0.2) /100WBC Sodium 141 (135-145) mmol/L Potassium 3.7 (3.3-5.1) mmol/L Chloride 110 H (96-108) mmol/L Carbon Dioxide 22 (22-29) mmol/L Anion Gap 13 (12-20) BUN 9 (9-16) mg/dL Creatinine 0.72 (0.5-1.4) mg/dL Estim Creat Clear Calc 106.5 Estimated GFR > 60 Random Glucose 115 (60-115) mg/dL Calcium 9.7 D (8.4-10.2) mg/dL Magnesium 2.3 (1.6-2.6) mg/dL Total Bilirubin 0.6 (0.0-1.0) mg/dL AST 13 (5-31) U/L ALT 7 (0-31) U/L Alkaline Phosphatase 42 (39-117) U/L Total Protein 7.5 (6.5-8.0) g/dL Albumin 4.5 (3.5-5.0) g/dL Beta HCG, Quant < 2 mIU/mL Urine Color Dark Yellow Urine Appearance Cloudy Urine pH 5.5 (5.0-9.0) Ur Specific [place] >= 1.030 H (1.005-1.025) Urine Protein Trace (Neg-Trace) mg/dL Urine Glucose (UA) Negative (Negative) mg/dL Urine Ketones Trace (Negative) mg/dL Urine Blood Moderate (2+) H (Negative) Urine Nitrite Negative (Negative) Ur Leukocyte Esterase Negative (Negative) Urine RBC 0-2 (0-2) /HPF Urine WBC 0-5 (0-5) /HPF Ur Squamous Epith Cells 3-5 (0-2) /HPF Urine Bacteria Trace (None Seen) Hyaline Casts 0-2 (0-2) /LPF Blood Type AB Positive Antibody Screen NEGATIVE Radiology Impression Discussion of test interpretation with radiology: I have reviewed the radiologist's reading. Radiologist Impression: Unremarkable examination Discharge Plan Discharge Clinical Impression: Dysmenorrhea Patient Disposition: Home, Self-Care Instructions: Dysmenorrhea (ED) Additional Instructions: Your blood work and ultrasound were reassuring today. You may follow-up with your PCP You may also follow-up with OBGYN, doctors are Dr Gilmore Use naproxen as needed for pain. Return for new or worsening symptoms Prescriptions: New naproxen 500 mg tablet 500 mg PO BID PRN (Reason: pain) Qty: 20 0RF No Action oseltamivir [Tamiflu] 75 mg capsule 75 mg PO Q12H 5 Days Qty: 10 0RF ibuprofen 600 mg tablet 600 mg PO Q6H PRN (Reason: fever or pain) Qty: 30 0RF medroxyprogesterone [Depo-Provera] 150 mg/mL syringe 150 mg IM [id number] Referrals: Sylvester Gilmore MD [Physician] - (Dysmenorrhea) Interventions: ED Discharge Assessment Last Done: 04/16/23 21:54 Discharge Date/Time: 04/16/23 21:59
[2023-04-16 17:56] VITALS: BP 108/72; PULSE 120; RESP 16; TEMP 36.8; O2SAT 97; BMI 36.3
[2023-04-16 18:30] LABS: MANUAL DIFF FLAG NO
[2023-04-16 18:32] LABS: Appearance Urine Cloudy; Basophils Percent Auto 0.5 % (0-2); Color Urine Dark Yellow; Eosinophils Percent Auto 0.4 % (0-4); Glucose Urine UA Negative (Negative); Hematocrit 43.6 % (37.0-47.0); Hemoglobin 14.7 g/dl (12.0-16.0); Imm Gran Abs Auto 0.02 X10*3/uL (0.00-0.03); Imm Gran Pct Auto 0.3 % (0.0-0.4); Leukocyte Esterase Urine Negative (Negative); Lymphocytes Absolute Auto 1.8 X10*3/uL (1.2-4.9); Lymphocytes Percent Auto 23.7 % (20-40); Mean Corpuscular HGB Conc 33.7 g/dl (31.0-35.0); Mean Corpuscular Hemoglobin 27.4 pg (27.0-33.0); Mean Corpuscular Volume 81.3 fL (80.0-98.0); Mean Platelet Volume 10.2 fL (9.4-12.3); Monocytes Absolute Auto 0.3 X10*3/uL (0.1-1.2); Monocytes Percent Auto 3.7 % (2-11); Neutrophils Absolute Auto 5.5 x10*3/uL (2.0-8.3); Neutrophils Percent Auto 71.4 % (45-73); Nitrite Urine Negative (Negative); PH 5.5 (5.0-9.0); Platelet Count 279 X10*3/uL (160-400); Red Blood Count 5.36 X10*6/uL (4.20-5.50); Red Cell Distribution Width 13.2 % (11.0-16.0); Specific Gravity - Urine >= 1.030 (1.005-1.025); UMIC TRIGGER UACC YES; Urine Blood Moderate (2+) (Negative); Urine Ketones Trace mg/dL (Negative); Urine Protein Trace mg/dL (Neg-Trace); White Blood Count 7.8 X10*3/uL (4.8-10.8)
--- NOTE | 2023-04-16 18:34 | MHC.EDTECH ---
Patient blood drawn including type and screen and urine sample collected all sent to lab .
[2023-04-16 18:46] LABS: Bacteria Urine Trace (None Seen); Hyaline Casts Urine 0-2 /LPF (0-2); RBC Urine 0-2 /HPF (0-2); WBC Urine 0-5 /HPF (0-5)
[2023-04-16 18:54] LABS: Alanine Aminotransferase 7 U/L (0-31); Albumin Level 4.5 g/dL (3.5-5.0); Alkaline Phosphatase 42 U/L (39-117); Anion Gap 13 (12-20); Aspartate Amino Transferase 13 U/L (5-31); Bilirubin Total 0.6 mg/dL (0.0-1.0); Blood Urea Nitrogen 9 mg/dL (9-16); Calcium 9.7 mg/dL (8.4-10.2); Carbon Dioxide 22 mmol/L (22-29); Chloride 110 mmol/L (96-108); Creatinine Clr Calc Pharmacy 106.5; Estimated Glomerular Filt Rate > 60; Glucose Random 115 mg/dL (60-115); Magnesium 2.3 mg/dL (1.6-2.6); Potassium 3.7 mmol/L (3.3-5.1); Sodium 141 mmol/L (135-145); Total Protein 7.5 g/dL (6.5-8.0)
[2023-04-16 19:03] LABS: HCG Quantitative < 2 mIU/mL
[2023-04-16 20:22] VITALS: BP 110/76; PULSE 95; RESP 16; O2SAT 97
--- NOTE | 2023-04-16 20:54 | PC.NURSE ---
pt refused IM injection for pain control, would rather PO . Let provider know
[2023-04-16] MEDS: traMADoL HCL 50 MG TABLET PO (21:23)
== END 2023-04-16 21:59 | disposition home or self-care (01) ==
PROVIDERS: Physician Assistant; Emergency Provider Student in an Organized Health Care Education/Training Program; PCP Internal Medicine
DX: N94.4 Primary dysmenorrhea (principal); R10.2 Pelvic and perineal pain; Z79.899 Other long term (current) drug therapy
CPT/HCPCS: 36415; 76830; 76856; 80053; 81001; 83735; 84702; 85025; 86850; 86900; 86901; 99284

== ENCOUNTER 2023-09-23 17:02 | Emergency (ER) | payer MEDICAID, SELFPAY ==
--- NOTE | ~2023-09-23 | XR_ITS ---
EXAMINATION: XR LUMBOSACRAL SPINE CLINICAL INFORMATION: Low back pain status post fall down stairs. COMPARISON: Lumbar spine radiographs dated 11/27/2020. TECHNIQUE: Three views of the lumbosacral spine. FINDINGS: Vertebral spinal alignment is anatomic in the sagittal projection. Vertebral body heights are maintained. There is mild narrowing of the intervertebral disc space at L5-S1, which has progressed since the prior exam. There is mild facet arthropathy at this level. The paraspinal soft tissue is normal in appearance. The visualized bowel is normal in appearance. The sacroiliac joints are maintained. XR/XR lumbar spine 2-3V IMPRESSION: No acute osseous lumbar spine abnormality. 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
--- NOTE | ~2023-09-23 | XR_ITS ---
EXAMINATION: XR THORACOLUMBAR SPINE CLINICAL INFORMATION: Pain status post fall down stairs. COMPARISON: None available. TECHNIQUE: 3 radiographs of the thoracic spine were performed. FINDINGS: The vertebral alignment is normal. No intrinsic bony abnormality. The disc heights are well maintained. The endplates and posterior elements are normal. No fracture or subluxation. The surrounding prevertebral soft tissues are unremarkable. The visualized lungs are clear. Heart size is normal. XR/XR thoracic spine 2V IMPRESSION: No compression fractures or subluxations are identified. The disc spaces are preserved.
--- NOTE | ~2023-09-23 | CT_ITS ---
EXAMINATION: CT HEAD WITHOUT CONTRAST CT CERVICAL SPINE WITHOUT CONTRAST CLINICAL INFORMATION: Fall. Head strike. Neck pain. COMPARISON: CT head and cervical spine from 05/07/2018. TECHNIQUE: Contiguous axial imaging was performed from the skull base to vertex without intravenous administration of contrast. Contiguous axial imaging was performed from the upper chest through the skull base without intravenous administration of contrast. Coronal and sagittal reformats were obtained at the acquisition workstation. This CT examination was performed using dose optimization techniques as appropriate, variously including the following: *Automated exposure control. *Adjustment of mA and/or kV according to patient size (this includes techniques or standardized protocols for targeted exams where dose is matched to indication/reason for exam; i.e. extremities or head). *Use of iterative reconstruction technique. DLP: 1049 mGy-cm FINDINGS: Head: There is no evidence of acute intracranial hemorrhage or edematous territorial infarction. Mayo-white matter differentiation is preserved. There is no abnormal attenuation within the brain parenchyma. The ventricles are normal in morphology and size. No evidence for obstructive hydrocephalus. No abnormal mass effect or midline shift. No extra-axial fluid collections. No acute soft tissue or osseous abnormalities. Mucus retention cyst within the left maxillary sinus. Mild mucosal thickening of the remaining paranasal sinuses. The mastoid air cells and middle ear cavities are clear. Cervical Spine: The atlantooccipital and atlantoaxial articulations remain well aligned. Mild reversal the normal cervical lordosis centered on C4. Otherwise, there is anatomic alignment of the vertebral bodies and posterior elements. No evidence of acute fracture or subluxation. The vertebral body heights and disc spaces are maintained. There is no prevertebral soft tissue swelling. The thyroid gland and remaining cervical soft tissues are within normal limits. The lung apices demonstrate no abnormalities. CT/CT cervical spine wo IV con IMPRESSION: 1. No evidence of acute intracranial hemorrhage or edematous territorial infarction. 2. No evidence of acute fracture or traumatic subluxation of the cervical spine.
[2023-09-23 17:15] VITALS: BP 107/72; PULSE 96; RESP 16; TEMP 36.8; O2SAT 97; BMI 37.4
--- NOTE | 2023-09-23 17:15 | ED.GENADULT ---
HPI - General Adult General Chief complaint: Fall Stated complaint: L side back pain Related Data Home Medications ?Medication ?Instructions ?Recorded ?Confirmed medroxyprogesterone 150 mg/mL 150 mg IM [id number] 12/18/20 intramuscular syringe (Depo-Provera) Previous Rx's ?Medication ?Instructions ?Recorded ibuprofen 600 mg tablet 600 mg PO Q6H PRN fever or pain 05/18/22 #30 tabs oseltamivir 75 mg capsule (Tamiflu) 75 mg PO Q12H 5 days #10 caps 05/18/22 naproxen 500 mg tablet 500 mg PO BID PRN pain #20 tabs 04/16/23 Allergies Allergy/AdvReac Type Severity Reaction Status Date / Time No Known Allergies Allergy Verified 09/23/23 17:18 [No Known Allergies*] PMFSH Past Medical History Medical History No known health problems Surgical History Hx of appendectomy Hx of section Social History Social History Alcohol intake: never Patient Tobacco Use Status: Never used Tobacco Advance Directives: No Advance Directives Information Provided: No Physical Exam ED Vital Signs: Vital Signs - 24 hr 09/23/23 17:15 09/23/23 22:17 Temperature 98.2 F 97.5 F Pulse Rate 96 97 Respiratory Rate 16 18 Blood Pressure 107/72 105/63 Pulse Oximetry 97 98 Oxygen Delivery Method Room Air Room Air BMI result Body Mass Index 37.4 Course Course Course Narrative: RME:?28 yo belgian speaking femal here for eval of neck and back pain s/p slip and fall down stairs approximately 8 stairs yesterday. Was descending the stairs in her house when she slipped, falling on her butt/back and sliding down the stairs. unknown head strike however denies LOC. Endorses left sided neck pain along with upper and lower back pain. no otc pain meds. denies headache, dizziness, vision changes, dysuria, hematuria, saddle anesthesia, bowel or bladder incontinence or retention, numbness/weakness/tingling of the extremities. imaging ordered. Full HPI, ROS and PE to be performed by the primary ED provider. Reevaluation(s) Reevaluation #1: Patient left the ED without completing treatment. Medications Administered Discontinued Medications Generic Name Dose Route Start Last Admin Trade Name Jami PRN Reason Stop Dose Admin Acetaminophen 975 mg 09/23/23 17:21 09/23/23 17:24 Acetaminophen 325 Mg Tablet PO 09/23/23 17:22 975 mg ONCE ONE Administration Medical Decision Making Lab Data Labs: Lab Results 09/23/23 Range/Units 17:38 Urine Color Yellow Urine Appearance Clear Urine pH 7.0 (5.0-9.0) Ur Specific [place] >= 1.030 H (1.005-1.025) Urine Protein Trace (Neg-Trace) mg/dL Urine Glucose (UA) Negative (Negative) mg/dL Urine Ketones Trace (Negative) mg/dL Urine Blood Negative (Negative) Urine Nitrite Negative (Negative) Ur Leukocyte Esterase Negative (Negative) Urine Test NEGATIVE (NEGATIVE) Discharge Plan Discharge Clinical Impression: Back pain Patient Disposition: Left W/O Completing Treatment Prescriptions: No Action oseltamivir [Tamiflu] 75 mg capsule 75 mg PO Q12H 5 Days Qty: 10 0RF ibuprofen 600 mg tablet 600 mg PO Q6H PRN (Reason: fever or pain) Qty: 30 0RF naproxen 500 mg tablet 500 mg PO BID PRN (Reason: pain) Qty: 20 0RF medroxyprogesterone [Depo-Provera] 150 mg/mL syringe 150 mg IM [id number] Interventions: LUZ Worksheet Last Done: 09/24/23 01:41 Discharge Date/Time: 09/24/23 01:41
[2023-09-23] MEDS: Acetaminophen 325 MG TABLET 975 MG PO (17:24)
[2023-09-23 17:48] LABS: Appearance Urine Clear; Color Urine Yellow; Glucose Urine UA Negative (Negative); Leukocyte Esterase Urine Negative (Negative); Nitrite Urine Negative (Negative); Specific Gravity - Urine >= 1.030 (1.005-1.025); Urine Blood Negative (Negative); Urine Ketones Trace mg/dL (Negative); Urine Protein Trace mg/dL (Neg-Trace)
[2023-09-23 17:49] LABS: UPreg QC Valid YES; Urine Pregnancy NEGATIVE (NEGATIVE)
[2023-09-23 22:17] VITALS: BP 105/63; PULSE 97; RESP 18; TEMP 36.4; O2SAT 98
== END 2023-09-24 01:41 | disposition left against medical advice (07) ==
PROVIDERS: Physician Assistant Medical; Emergency Provider Emergency Medicine; PCP Internal Medicine
DX: S09.90XA Unspecified injury of head, initial encounter (principal); S29.9XXA Unspecified injury of thorax, initial encounter; M54.50 Low back pain, unspecified; M54.2 Cervicalgia; R51.9 Headache, unspecified; M54.6 Pain in thoracic spine; W10.9XXA Fall (on) (from) unspecified stairs and steps, initial encounter; Y93.9 Activity, unspecified; Y92.9 Unspecified place or not applicable; Y99.8 Other external cause status; Z79.899 Other long term (current) drug therapy
CPT/HCPCS: 70450; 72070; 72100; 72125; 81003; 81025; 99283; 99284

== ENCOUNTER 2023-12-13 05:19 | Emergency (ER) | payer MEDICAID, SELFPAY ==
--- NOTE | ~2023-12-13 | CT_ITS ---
EXAMINATION: CT ABDOMEN AND PELVIS WITHOUT CONTRAST CLINICAL INFORMATION: Right upper quadrant left flank left lower quadrant pain COMPARISON: Ultrasound pelvis from 04/16/2023 TECHNIQUE: Multidetector volumetric imaging was performed from the superior aspect of the liver through the pubic symphysis. Sagittal and coronal reformatted images were obtained on the technologist's workstation. This CT examination was performed using dose optimization techniques as appropriate, variously including the following: *Automated exposure control *Adjustment of mA and/or kV according to patient size (this includes techniques or standardized protocols for targeted exams where dose is matched to indication/reason for exam; i.e. extremities or head) *Use of iterative reconstruction technique DLP: 684 mGy-cm FINDINGS: LUNG BASES: Bibasilar atelectasis. No pneumothorax. No large pleural effusion. Slight elevation right hemidiaphragm. LIVER, GALLBLADDER, AND BILIARY TREE: Liver is enlarged measuring 21.0 cm. No focal hepatic lesion or biliary ductal dilatation is present. The gallbladder is unremarkable with no evidence of radiopaque gallstones, gallbladder wall thickening, or obvious pericholecystic inflammatory changes. PANCREAS: Unremarkable. SPLEEN: Unremarkable. ADRENAL GLANDS: Unremarkable. KIDNEYS AND URETERS: The kidneys are normal in size, shape, and attenuation. No hydronephrosis, hydroureter, or calculi seen. No perinephric stranding. BLADDER: Unremarkable. GASTROINTESTINAL TRACT: The small and large bowel are unremarkable. The appendix is unremarkable. ABDOMINAL WALL: No significant hernia is appreciated. LYMPH NODES: No enlarged lymph nodes per size criteria. VASCULAR: Abdominal aorta is nonaneurysmal. PELVIC VISCERA: Anteverted retroflexed uterus. Air in the vaginal cuff potentially iatrogenic. Bilateral adnexal/ovarian hypodense foci the largest on the right measuring 5.2 x 4.4 x 4.5 cm. Findings likely represent a probable benign cyst. Recommend follow-up ultrasonography in 3-6 months. OSSEOUS STRUCTURES: Sclerotic focus inferior anterior endplate of L4 statistically representing a bone island. Additional bone island noted in the left femoral head. CT/CT abdomen pelvis wo IV con IMPRESSION: 1. Bilateral adnexal/ovarian hypodense foci the largest on the right measuring 5.2 x 4.4 x 4.5 cm. Findings likely represent a probable benign cyst. Recommend follow-up ultrasonography in 3-6 months. 2. Liver is enlarged measuring 21.0 cm.
--- NOTE | ~2023-12-13 | US_ITS ---
EXAMINATION: US ABDOMEN LIMITED CLINICAL INFORMATION: Right upper quadrant pain. COMPARISON: None available. TECHNIQUE: Real-time imaging of the liver and gallbladder. FINDINGS: LIVER: The liver is enlarged The liver contour is normal. There is diffuse increased liver parenchymal echogenicity, consistent with hepatic steatosis. No focal hepatic lesion. There is no intrahepatic biliary duct dilatation seen. GALLBLADDER: Single large gallstone present measuring 1.7 x 1.3 x 1.4 cm. The gallbladder is otherwise unremarkable. COMMON BILE DUCT: Normal in caliber measuring 0.4 cm in diameter. US/US abdomen limited IMPRESSION: Limited exam demonstrating enlarged fatty liver and cholelithiasis.
[2023-12-13 05:23] VITALS: BP 118/73; PULSE 97; RESP 16; TEMP 36.6; O2SAT 99; BMI 40.0
[2023-12-13 05:46] LABS: Appearance Urine Cloudy; Color Urine Yellow; Glucose Urine UA Negative (Negative); Leukocyte Esterase Urine Negative (Negative); Nitrite Urine Negative (Negative); Specific Gravity - Urine 1.025 (1.005-1.025); Urine Blood Negative (Negative); Urine Ketones Trace mg/dL (Negative); Urine Protein Negative (Neg-Trace)
[2023-12-13 05:47] LABS: UPreg QC Valid YES; Urine Pregnancy NEGATIVE (NEGATIVE)
[2023-12-13 05:54] LABS: Basophils Percent Auto 0.6 % (0-2); Eosinophils Absolute Auto 0.1 X10*3/uL (0.0-0.4); Eosinophils Percent Auto 1.9 % (0-4); Hematocrit 38.2 % (37.0-47.0); Hemoglobin 12.9 g/dl (12.0-16.0); Imm Gran Abs Auto 0.01 X10*3/uL (0.00-0.03); Imm Gran Pct Auto 0.2 % (0.0-0.4); Lymphocytes Percent Auto 30.9 % (20-40); MANUAL DIFF FLAG NO; Mean Corpuscular HGB Conc 33.8 g/dl (31.0-35.0); Mean Corpuscular Hemoglobin 27.6 pg (27.0-33.0); Mean Corpuscular Volume 81.8 fL (80.0-98.0); Monocytes Absolute Auto 0.4 X10*3/uL (0.1-1.2); Monocytes Percent Auto 5.6 % (2-11); Neutrophils Absolute Auto 3.9 x10*3/uL (2.0-8.3); Neutrophils Percent Auto 60.8 % (45-73); Platelet Count 260 X10*3/uL (160-400); Red Blood Count 4.67 X10*6/uL (4.20-5.50); Red Cell Distribution Width 14.2 % (11.0-16.0); White Blood Count 6.4 X10*3/uL (4.8-10.8)
[2023-12-13 06:05] LABS: Anion Gap 13 (12-20); Blood Urea Nitrogen 5 mg/dL (9-16); Calcium 9.2 mg/dL (8.4-10.2); Carbon Dioxide 24 mmol/L (22-29); Chloride 107 mmol/L (96-108); Estimated Glomerular Filt Rate > 60; Glucose Random 109 mg/dL (60-115); Potassium 3.8 mmol/L (3.3-5.1); Sodium 140 mmol/L (135-145)
--- NOTE | 2023-12-13 06:33 | ED.FEMALEGU ---
HPI - Female Genitourinary General Chief complaint: Urogenital-Female Stated complaint: uro gen female Time Seen by Provider: 12/13/23 06:33 Source: patient, RN notes reviewed and old records reviewed Mode of arrival: ambulatory History of Present Illness ED Provider: Maryuri Da Silva PA-C [facility] Narrative: 28-year-old female with a past medical history of complex ovarian cysts presenting to the ED complaining bilateral flank pain with radiation to LLQ & RUQ since last night. Also reports constipation, last BM yesterday morning with associated nausea. Denies vomiting, diarrhea, dysuria/hematuria, fever. Related Data Home Medications ?Medication ?Instructions ?Recorded ?Confirmed medroxyprogesterone 150 mg/mL 150 mg IM [id number] 12/18/20 intramuscular syringe (Depo-Provera) Previous Rx's ?Medication ?Instructions ?Recorded ibuprofen 600 mg tablet 600 mg PO Q6H PRN fever or pain 05/18/22 #30 tabs oseltamivir 75 mg capsule (Tamiflu) 75 mg PO Q12H 5 days #10 caps 05/18/22 naproxen 500 mg tablet 500 mg PO BID PRN pain #20 tabs 04/16/23 Allergies Allergy/AdvReac Type Severity Reaction Status Date / Time No Known Allergies Allergy Verified 12/13/23 05:26 [No Known Allergies*] Review of Systems Review of Systems: Constitutional: No Fever, No Chills ENT/Mouth: No Ear Pain, No Nasal Congestion, No sore throat, No Rhinorrhea, No Swallowing Difficulty Cardiovascular: No Chest Pain, No SOB Respiratory: No Cough, No Sputum, No Wheezing Gastrointestinal: +Nausea, No Vomiting, No Diarrhea, + Constipation, + Abdominal pain Genitourinary: No Dysuria, No Urinary Frequency, No Hematuria, No Urinary Incontinence/retention, + Flank Pain Musculoskeletal: No joint pain, No Myalgias, No Joint Swelling Skin: No Skin Lesions, No rash Neuro: No Weakness Yes all other systems are reviewed and are negative Constitutional: Constitutional: Reports as per [facility] Past Medical History Attestation statement: The following information was validated with the patient. Source: old records reviewed Medical History No known health problems Surgical History Hx of appendectomy Hx of section Social History Social History Alcohol intake: never Patient Tobacco Use Status: Never used Tobacco Advance Directives: No Advance Directives Information Provided: No Patient : No Physical Exam Vital Signs: Vital Signs: Last Vital Signs Temp 98 F 12/13/23 10:28 Pulse 71 12/13/23 10:28 Resp 18 12/13/23 10:28 BP 104/62 12/13/23 10:28 Pulse Ox 98 12/13/23 10:28 O2 Del Method Room Air 12/13/23 10:28 BMI result Body Mass Index 40.0 Const: General: cooperative, healthy appearing and no acute distress Orientation/consciousness: patient oriented x3 Limitations: no limitations HEENT: Head: Yes normal to inspection and Yes atraumatic Ears: hearing grossly normal bilaterally General nose exam: Normal external nose present Face and sinus: Yes normal facial exam Eyes: General: appearance normal, both eyes and all related structures EOM: EOMs intact bilaterally Neck: Neck: Yes normal visual inspection and Yes no meningeal signs Resp: Effort & Inspection: normal respiratory effort and no respiratory distress Auscultation: clear to auscultation bilaterally Cardio: Rate: regular rate Heart sounds: S1 normal heart sound present and S2 normal heart sound present GI: Inspection: Yes normal to inspection Palpation (GI): Soft to palpation, Tenderness to palpation present (GI) in the LLQ and in the RUQ; with no rebound tenderness, no guarding and not rigid : General: Yes CVA tenderness bilateral Back/Spine/Pelvis: Back: CVA tenderness Skin: Rashes: no rashes Wounds: no wounds Neuro: General: patient oriented x3, tone normal and no meningeal signs Cranial nerves: Yes CN's II-XII intact bilaterally Gait exam (Neuro): Normal gait present Extrem: General: Yes normal to inspection Course Course Course Narrative: -0810--labs reassuring. UA negative. negative. CT abdomen pelvis wo IV con IMPRESSION: 1. Bilateral adnexal/ovarian hypodense foci the largest on the right measuring 5.2 x 4.4 x 4.5 cm. Findings likely represent a probable benign cyst. Recommend follow-up ultrasonography in 3-6 months. 2. Liver is enlarged measuring 21.0 cm. > results discussed with patient. Reports known history of ovarian cysts. On abdominal palpation hydrate control tender in RUQ > will obtain ultrasound for further eval. Patient does reports symptomatic improvement, is tolerating p.o. Recommended outpatient ultrasound of pelvic area 1012--US abdomen limited IMPRESSION: Limited exam demonstrating enlarged fatty liver and cholelithiasis. 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 On re-evaluation reports symptomatic improvement, sleeping comfortably. Recommended close GI and OBGYN follow-up. Discussed worrisome signs and symptoms and strict return precautions, and when to return to the emergency department. They verbalized understanding and feel safe for discharge at this time. Medications Administered Discontinued Medications Generic Name Dose Route Start Last Admin Trade Name Freq PRN Reason Stop Dose Admin Al Hydroxide/Mg Hydroxide 30 ml 12/13/23 07:52 12/13/23 08:04 Magnesium Hydrox/Alum Hydrox 30 Ml Oral.Susp PO 12/13/23 07:53 30 ml ONCE ONE Administration Sodium Chloride 1,000 mls @ 999 mls/hr 12/13/23 07:30 12/13/23 10:26 Ns IV 12/13/23 08:30 Infused .Q1H1M JEY Infusion Ketorolac Tromethamine 15 mg 12/13/23 07:22 12/13/23 07:27 Ketorolac Tromethamine 15 Mg/Ml Vial IVPUSH 12/13/23 07:23 15 mg ONCE ONE Administration Ondansetron HCl 4 mg 12/13/23 07:22 12/13/23 07:27 Ondansetron Hcl 4 Mg/2 Ml Vial IVPUSH 12/13/23 07:23 4 mg ONCE ONE Administration Medical Decision Making Medical Decision Making MDM Narrative: 28-year-old female with a past medical history of complex ovarian cysts presenting to the ED complaining bilateral flank pain with radiation to LLQ & RUQ since last night. Also reports constipation. On exam vital signs stable, NAD, nontoxic appearing, abdomen soft with RUQ, LLQ and bilateral CVAT. No rebound or guarding. Concern for renal stone vs pyelo vs UTI vs diverticulitis vs cholecystitis vs colitis. Or constipation. Lower suspicion for ovarian torsion, pancreatitis Plan: Labs, UA, CT AP, IVF, pain control, re-evaluate Please refer to course for remaining clinical decision making, interpretation of labs/imaging results, and discussions with consultants and/or family members. Differential Diagnosis Differential Diagnoses: The differential diagnosis associated with the presentation includes As above Admission/Observation Consideration of admission/observation: Escalation of care including admission/observation considered Lab Data MDM Lab Attestation statement: I reviewed the patient's lab results. 12/13/23 05:50 12/13/23 05:50 Labs: Lab Results 12/13/23 12/13/23 Range/Units 05:39 05:50 WBC 6.4 (4.8-10.8) X10*3/uL RBC 4.67 (4.20-5.50) X10*6/uL Hgb 12.9 (12.0-16.0) g/dl Hct 38.2 (37.0-47.0) % MCV 81.8 (80.0-98.0) fL MCH 27.6 (27.0-33.0) pg MCHC 33.8 (31.0-35.0) g/dl RDW 14.2 (11.0-16.0) % Plt Count 260 (160-400) X10*3/uL MPV 10.0 (9.4-12.3) fL Immature Gran % (Auto) 0.2 (0.0-0.4) % Neut % (Auto) 60.8 (45-73) % Lymph % (Auto) 30.9 (20-40) % [place] % (Auto) 5.6 (2-11) % Eos % (Auto) 1.9 (0-4) % Baso % (Auto) 0.6 (0-2) % Lymph # (Auto) 2.0 (1.2-4.9) X10*3/uL [place] # (Auto) 0.4 (0.1-1.2) X10*3/uL Eos # (Auto) 0.1 (0.0-0.4) X10*3/uL Baso # (Auto) 0.0 (0.0-0.2) X10*3/uL Abs Immat Gran (auto) 0.01 (0.00-0.03) X10*3/uL Absolute Neuts (auto) 3.9 (2.0-8.3) x10*3/uL Absolute Nucleated RBC 0.000 (0.0-0.012) X10*3/uL Nucleated RBC % (auto) 0.0 (0.0-0.2) /100WBC Sodium 140 (135-145) mmol/L Potassium 3.8 (3.3-5.1) mmol/L Chloride 107 (96-108) mmol/L Carbon Dioxide 24 (22-29) mmol/L Anion Gap 13 (12-20) BUN 5 L (9-16) mg/dL Creatinine 0.73 (0.5-1.4) mg/dL Estim Creat Clear Calc 110.0 Estimated GFR > 60 Random Glucose 109 (60-115) mg/dL Calcium 9.2 (8.4-10.2) mg/dL Total Bilirubin 0.3 (0.0-1.0) mg/dL Direct Bilirubin 0.1 (0.0-0.5) mg/dL AST 12 (5-31) U/L ALT 8 (0-31) U/L Alkaline Phosphatase 49 (39-117) U/L Total Protein 7.1 (6.5-8.0) g/dL Albumin 4.1 (3.5-5.0) g/dL Lipase 27 (8-78) U/L Urine Color Yellow Urine Appearance Cloudy Urine pH 6.0 (5.0-9.0) Ur Specific [place]wl 1.025 (1.005-1.025) Urine Protein Negative (Neg-Trace) mg/dL Urine Glucose (UA) Negative (Negative) mg/dL Urine Ketones Trace (Negative) mg/dL Urine Blood Negative (Negative) Urine Nitrite Negative (Negative) Ur Leukocyte Esterase Negative (Negative) Urine Test NEGATIVE (NEGATIVE) Independent Interpretation I performed an independent interpretation of an: CT Scan Radiology Impression Discussion of test interpretation with radiology: I have reviewed the radiologist's reading. External Record Review External record reviewed: Inpatient record, Office record, Outpatient record, Prior outpatient labs, Prior outpatient radiology, Primary care record and Outside ED record Tests considered The following testing was considered but not selected: As above Prescription Management I considered prescription management with: Pain Medication Discharge Plan Discharge Clinical Impression: Cholelithiasis, Fatty liver Patient Disposition: Home, Self-Care Instructions: Gallstones (ED), Non-Alcoholic Fatty Liver Disease (ED) Additional Instructions: Your blood work and urine were reassuring. You need to have close follow-up with your OBGYN as well as Gastroenterology If her symptoms persist or worsen her pain becomes unbearable, you are unable to eat or drink please return to the emergency department Prescriptions: No Action oseltamivir [Tamiflu] 75 mg capsule 75 mg PO Q12H 5 Days Qty: 10 0RF ibuprofen 600 mg tablet 600 mg PO Q6H PRN (Reason: fever or pain) Qty: 30 0RF naproxen 500 mg tablet 500 mg PO BID PRN (Reason: pain) Qty: 20 0RF medroxyprogesterone [Depo-Provera] 150 mg/mL syringe 150 mg IM [id number] Referrals: [facility] [facility] [Provider Group] [facility] [place] [facility] [Provider Group] Interventions: ED Discharge Assessment Last Done: 12/13/23 10:28 Discharge Date/Time: 12/13/23 10:35 Print Language: Greenlandic
[2023-12-13 07:02] LABS: Alanine Aminotransferase 8 U/L (0-31); Albumin Level 4.1 g/dL (3.5-5.0); Alkaline Phosphatase 49 U/L (39-117); Aspartate Amino Transferase 12 U/L (5-31); Bilirubin Direct 0.1 mg/dL (0.0-0.5); Bilirubin Total 0.3 mg/dL (0.0-1.0); Lipase 27 U/L (8-78); Total Protein 7.1 g/dL (6.5-8.0)
[2023-12-13] MEDS: ondansetron HCL 4 MG/2 ML VIAL IVPUSH (07:27)
[2023-12-13] MEDS: Ketorolac Tromethamine 15 MG/ML VIAL IVPUSH (07:27)
[2023-12-13] MEDS: 0.9 % Sodium Chloride 1,000 ML 999 ML IV (07:27)
[2023-12-13] MEDS: Magnesium Hydrox/Alum Hydrox 30 ML ORAL.SUSP PO (08:04)
[2023-12-13 08:24] VITALS: BP 104/62; PULSE 71; RESP 14; O2SAT 98
--- NOTE | 2023-12-13 08:57 | PC.NURSE ---
patient resting comfortably on stretcher at this time, fluids running, patinet educated to keep arm straight so she can get the entire bolus, patient agreeable at this time, awaiting Ultrasound. patient offering no complaints,
--- NOTE | 2023-12-13 09:07 | PC.NURSE ---
ultrasound at bedside
[2023-12-13 10:28] VITALS: BP 104/62; PULSE 71; RESP 18; TEMP 36.6; O2SAT 98
== END 2023-12-13 10:35 | disposition home or self-care (01) ==
PROVIDERS: Physician Assistant; Emergency Provider Emergency Medicine
DX: K80.20 Calculus of gallbladder without cholecystitis without obstruction (principal); K76.0 Fatty (change of) liver, not elsewhere classified; R10.2 Pelvic and perineal pain; R10.32 Left lower quadrant pain; R10.11 Right upper quadrant pain; R11.2 Nausea with vomiting, unspecified; Z79.899 Other long term (current) drug therapy
CPT/HCPCS: 36415; 74176; 76705; 80048; 80076; 81003; 81025; 83690; 85025; 96361; 96374; 96375; 99284; J1885; J2405

== ENCOUNTER 2023-12-18 12:10 | Outpatient (REF) | payer MEDICAID, SELFPAY ==
[2023-12-18 13:34] LABS: Estimated Average Glucose 97 mg/dL
[2023-12-18 13:46] LABS: Cholesterol 140 mg/dL (<200); HDL Cholesterol 40 mg/dL (>40); LDL Cholesterol Calculated 83 mg/dL (<100); Triglycerides 87 mg/dL (<150)
== END 2023-12-18 12:11 | disposition home or self-care (01) ==
LOC: HO.HHCL 12:10
PROVIDERS: Visit Provider General Practice
DX: K76.0 Fatty (change of) liver, not elsewhere classified (principal)
CPT/HCPCS: 36415; 80061; 83036

== ENCOUNTER 2024-01-11 18:02 | Outpatient (REF) | payer MEDICAID, SELFPAY ==
[2024-01-12 10:50] LABS: Bacterial Vaginosis PCR POSITIVE (Negative); Candida Group PCR NOT DETECTED (Not Detect); Candida glab krusei PCR NOT DETECTED (Not Detect); Trichomonas vaginalis PCR NOT DETECTED (Not Detect)
[2024-01-12 11:40] LABS: CT PCR NOT DETECTED (Not Detect.); NG PCR NOT DETECTED (Not Detect.)
== END 2024-01-11 18:03 | disposition home or self-care (01) ==
LOC: HO.HHCLNP 18:02
PROVIDERS: Visit Provider Internal Medicine
DX: N89.8 Other specified noninflammatory disorders of vagina (principal)
CPT/HCPCS: 0352U; 87491; 87591

== ENCOUNTER 2024-01-13 14:15 | Outpatient (REF) | payer MEDICAID, SELFPAY ==
[2024-01-13 16:21] LABS: MANUAL DIFF FLAG NO
[2024-01-13 16:31] LABS: Basophils Percent Auto 0.6 % (0-2); Eosinophils Absolute Auto 0.1 X10*3/uL (0.0-0.4); Eosinophils Percent Auto 1.7 % (0-4); Hematocrit 39.6 % (37.0-47.0); Hemoglobin 12.8 g/dl (12.0-16.0); Imm Gran Abs Auto 0.02 X10*3/uL (0.00-0.03); Imm Gran Pct Auto 0.3 % (0.0-0.4); Lymphocytes Percent Auto 29.4 % (20-40); Mean Corpuscular HGB Conc 32.3 g/dl (31.0-35.0); Mean Corpuscular Volume 83.5 fL (80.0-98.0); Mean Platelet Volume 10.6 fL (9.4-12.3); Monocytes Absolute Auto 0.4 X10*3/uL (0.1-1.2); Monocytes Percent Auto 5.5 % (2-11); Neutrophils Absolute Auto 4.3 x10*3/uL (2.0-8.3); Neutrophils Percent Auto 62.5 % (45-73); Platelet Count 287 X10*3/uL (160-400); Red Blood Count 4.74 X10*6/uL (4.20-5.50); White Blood Count 6.9 X10*3/uL (4.8-10.8)
== END 2024-01-13 14:16 | disposition home or self-care (01) ==
LOC: HO.HHCL 14:15
PROVIDERS: Visit Provider Internal Medicine
DX: Z32.01 Encounter for pregnancy test, result positive (principal)
CPT/HCPCS: 36415; 85025

== ENCOUNTER 2024-01-17 12:29 | Emergency (ER) | payer MEDICAID, SELFPAY ==
--- NOTE | ~2024-01-17 | US_ITS ---
EXAMINATION: US OBSTETRICAL ULTRASOUND CLINICAL INFORMATION: with vaginal spotting and lower abdominal cramping COMPARISON: None available. LMP: 12/14/2019 0.4. Gestational age by maternal dates is 4 weeks 6 days. Estimated date of delivery by maternal dates is 09/20/2019 0.5. TECHNIQUE: Multiple sonographic transabdominal and endovaginal views the pelvis were obtained. Endovaginal images were needed to better assess the anatomy. FINDINGS: There is a subtle single intrauterine gestational sac with visible possible yolk sac. This area has a mean sac diameter of 0.69 cm which would correspond with the estimated gestational age of 5 weeks 2 days Additional small fluid collection in the endometrial cavity is noted as well. No pole or gestational sac is able to be delineated. This is too early to detect heart rate. There is no significant subchorionic hemorrhage or hematoma. ANALILIA (estimated date of delivery): 526 2 ( +/- 4 days. MATERNAL ADNEXA: The right maternal ovary measures 2.5 x 3.6 x 2.1 cm. Follicles noted The left maternal ovary measures 3.6 x 4.2 x 3.5 cm. Small follicles noted measuring up to 2.6 cm in size. There is no significant maternal adnexal mass. Small maternal pelvic ascites. US/US OB pelvic and transvaginal IMPRESSION: There is a small possible early gestational sac seen within the endometrial cavity although I do not appreciate any discrete pole for size measurements possibly due to early gestational age. Small amount of fluid is seen in the endometrial cavity as well. This cannot be defined further at this time. Consider serial quantitative beta hCG and sonographic follow-up is needed.
[2024-01-17 12:32] VITALS: BP 105/63; PULSE 95; RESP 18; TEMP 36.7; O2SAT 97; BMI 38.2
--- NOTE | 2024-01-17 12:37 | ED_ITS ---
HPI - General Adult General Stated complaint: Spotting Few Weeks Related Data Home Medications ?Medication ?Instructions ?Recorded ?Confirmed medroxyprogesterone 150 mg/mL 150 mg IM [id number] 12/18/20 intramuscular syringe (Depo-Provera) Previous Rx's ?Medication ?Instructions ?Recorded ibuprofen 600 mg tablet 600 mg PO Q6H PRN fever or pain 05/18/22 #30 tabs oseltamivir 75 mg capsule (Tamiflu) 75 mg PO Q12H 5 days #10 caps 05/18/22 naproxen 500 mg tablet 500 mg PO BID PRN pain #20 tabs 04/16/23 Allergies Allergy/AdvReac Type Severity Reaction Status Date / Time No Known Allergies Allergy Verified 01/17/24 12:38 [No Known Allergies*] PMFSH Past Medical History Medical History No known health problems Surgical History Hx of appendectomy Hx of section Social History Social History Alcohol intake: never Patient Tobacco Use Status: Never used Tobacco Course Course Course Narrative: RME: done by ISABELL Jonas. 28 yold female A1 who is presents to the ED for right lower abdominal pain with vaginal bleeding since last night. Patient has prevvious miscarriage in the past. vital signs are stable. Labs and US ordered. no abdominal gaurding. Discharge Plan Discharge Prescriptions: No Action oseltamivir [Tamiflu] 75 mg capsule 75 mg PO Q12H 5 Days Qty: 10 0RF ibuprofen 600 mg tablet 600 mg PO Q6H PRN (Reason: fever or pain) Qty: 30 0RF naproxen 500 mg tablet 500 mg PO BID PRN (Reason: pain) Qty: 20 0RF medroxyprogesterone [Depo-Provera] 150 mg/mL syringe 150 mg IM [id number] Print Language: Portuguese
--- NOTE | 2024-01-17 13:20 | ED_ITS ---
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 Doll HPI Narrative: 28-year-old female in her early presented with vaginal spotting started after having sexual intercourse yesterday, patient only sees blood when she wipes after urination, Mild left abdominal pain that has been constant for the past 3 weeks. Related Data Home Medications ?Medication ?Instructions ?Recorded ?Confirmed medroxyprogesterone 150 mg/mL 150 mg IM [id number] 12/18/20 intramuscular syringe (Depo-Provera) Previous Rx's ?Medication ?Instructions ?Recorded ibuprofen 600 mg tablet 600 mg PO Q6H PRN fever or pain 05/18/22 #30 tabs oseltamivir 75 mg capsule (Tamiflu) 75 mg PO Q12H 5 days #10 caps 05/18/22 naproxen 500 mg tablet 500 mg PO BID PRN pain #20 tabs 04/16/23 Allergies Allergy/AdvReac Type Severity Reaction Status Date / Time No Known Allergies Allergy Verified 01/17/24 12:38 [No Known Allergies*] Review of Systems 2 Review of Systems: All other systems are reviewed and are negative Constitutional: Reports as per HPI and Reports no additional constitutional complaints Eyes: Reports as per HPI and Reports no additional eye complaints Reports system reviewed and no additional complaints, except as documented Cardiovascular: Reports as per HPI and Reports no additional cardiovascular complaints Respiratory: Reports as per HPI and Reports no additional respiratory complaints Gastrointestinal: Reports as per HPI and Reports no additional gastrointestinal complaints Genitourinary: Reports no additional female genitourinary complaints Musculoskeletal: Reports no additional musculoskeletal complaints Skin/Breast: Reports system reviewed and no additional complaints, except as docu Psychiatric: Reports no additional psychiatric complaints Endocrine: Reports no additional endocrine complaints Hematologic/Lymphatic: Reports no additional hematologic/lymphatic complaints Allergic/Immunologic: Reports no additional allergic/immunologic complaints Reports system reviewed and no additional complaints, except as documented and Reports Abnormal speech present PMFSH Past Medical History Medical History No known health problems Surgical History Hx of appendectomy Hx of section Social History Social History Alcohol intake: never Patient Tobacco Use Status: Never used Tobacco Smoked in Last 30 Days: No Use of substances other than those prescribed or required for medical reasons: No Advance Directives: No Advance Directives Information Provided: No Do you have a plan to hurt others: No Plan Patient : Yes Physical Exam 2 Vital Signs: Vital Signs: Last Vital Signs Temp 98.1 F 01/17/24 12:32 Pulse 86 01/17/24 13:55 Resp 18 01/17/24 13:55 BP 101/58 L 01/17/24 13:55 Pulse Ox 99 01/17/24 13:55 O2 Del Method Room Air 01/17/24 13:55 BMI result Body Mass Index 38.2 Vital signs have been reviewed and appear to be correct. Blood pressure elevated. Heart rate normal. Respiratory rate normal. Temperature normal. Oxygen saturation normal. Appearance: Alert. Oriented X3. No acute distress. Head: Normal external exam. Normocephalic. Atraumatic. No Ta signs noted. No raccoon eyes noted Eyes: PERRLA. EOMI. Conjunctiva and sclera normal. Eyelids normal. ENT: TM's Normal. Pharynx normal. Uvula midline. Moist mucous membranes. No trismus noted. No drooling noted. No muffled voice noted. Neck: Normal inspection. Neck supple. FROM. No adenopathy. Thyroid Normal. No meningeal signs. No neck mass noted. CVS: Normal heart rate and rhythm. Heart sound normal. No murmurs noted. Pulses normal throughout. Respiratory: No respiratory distress. Painless inspiration. Breath sounds normal. No wheezes/rales/rhonchi noted. Chest nontender. No accessory muscle usage noted or decreased air movement noted. Abdomen: Soft and nontender. Bowel sounds normal in all 4 quadrants. No distention noted. No organomegaly noted. No visible injury noted. Back: No CVA tenderness. Full range of motion noted. Skin: Skin warm and dry. Normal skin color. Normal skin turgor. No rashes/lesions/lacerations noted. Extremities: No lower extremity edema. Extremities exhibit normal range of motion. Extremities nontender. Neuro: Oriented X 3. Cranial nerve exam: II-XII are grossly intact No motor deficit. No sensory deficit. Reflexes normal. Course Reevaluation(s) Reevaluation #1: 28-year-old female in early stage , unknown LMP came in with vaginal spotting, hemodynamically stable serum hCG is 6345 awaiting for pelvic ultrasound with this level of hCG expect to see intrauterine , blood type is AB-positive. discharge with close follow-up with OBGYN Case signed out to . Time: 16:06 Medical Decision Making Differential Diagnosis Differential Diagnoses: The differential diagnosis associated with the presentation includes ( early , ectopic , miscarriage, ABO Rh incompatibility, severe anemia, hemodynamic instability, electrolyte derangement, UTI.) Admission/Observation Consideration of admission/observation: Escalation of care including admission/observation considered Lab Data MDM Lab Attestation statement: I reviewed the patient's lab results. 01/17/24 13:50 01/17/24 13:50 Labs: Lab Results 01/17/24 01/17/24 Range/Units 13:50 13:52 WBC 6.3 (4.8-10.8) X10*3/uL RBC 4.82 (4.20-5.50) X10*6/uL Hgb 13.3 (12.0-16.0) g/dl Hct 39.6 (37.0-47.0) % MCV 82.2 (80.0-98.0) fL MCH 27.6 (27.0-33.0) pg MCHC 33.6 (31.0-35.0) g/dl RDW 14.1 (11.0-16.0) % Plt Count 239 (160-400) X10*3/uL MPV 10.2 (9.4-12.3) fL Immature Gran % (Auto) 0.3 (0.0-0.4) % Neut % (Auto) 65.9 (45-73) % Lymph % (Auto) 25.4 (20-40) % [place] % (Auto) 6.4 (2-11) % Eos % (Auto) 1.4 (0-4) % Baso % (Auto) 0.6 (0-2) % Lymph # (Auto) 1.6 (1.2-4.9) X10*3/uL [place] # (Auto) 0.4 (0.1-1.2) X10*3/uL Eos # (Auto) 0.1 (0.0-0.4) X10*3/uL Baso # (Auto) 0.0 (0.0-0.2) X10*3/uL Abs Immat Gran (auto) 0.02 (0.00-0.03) X10*3/uL Absolute Neuts (auto) 4.1 (2.0-8.3) x10*3/uL Absolute Nucleated RBC 0.000 (0.0-0.012) X10*3/uL Nucleated RBC % (auto) 0.0 (0.0-0.2) /100WBC PT 12.1 (11.1-13.3) SEC INR 1.0 (0.9-1.1) APTT 27.9 (26.0-36.8) SEC Sodium 139 (135-145) mmol/L Potassium 3.7 (3.3-5.1) mmol/L Chloride 107 (96-108) mmol/L Carbon Dioxide 26 (22-29) mmol/L Anion Gap 10 L (12-20) BUN 7 L (9-16) mg/dL Creatinine 0.76 (0.5-1.4) mg/dL Estim Creat Clear Calc 102.9 Estimated GFR > 60 Random Glucose 88 (60-115) mg/dL Calcium 9.1 (8.4-10.2) mg/dL Total Bilirubin 0.4 (0.0-1.0) mg/dL AST 12 (5-31) U/L ALT 9 (0-31) U/L Alkaline Phosphatase 41 (39-117) U/L Total Protein 6.9 (6.5-8.0) g/dL Albumin 4.2 (3.5-5.0) g/dL Beta HCG, Quant 6345 mIU/mL Urine Color Yellow Urine Appearance Cloudy Urine pH 6.0 (5.0-9.0) Ur Specific [place] 1.025 (1.005-1.025) Urine Protein Negative (Neg-Trace) mg/dL Urine Glucose (UA) Negative (Negative) mg/dL Urine Ketones Negative (Negative) mg/dL Urine Blood Moderate (2+) H (Negative) Urine Nitrite Negative (Negative) Ur Leukocyte Esterase Negative (Negative) Urine RBC 0-2 (0-2) /HPF Urine WBC 0-5 (0-5) /HPF Ur Squamous Epith Cells 11-20 (0-2) /HPF Urine Bacteria 1+ (None Seen) Hyaline Casts 0-2 (0-2) /LPF Urine Test POSITIVE H (NEGATIVE) Blood Type AB Positive Discharge Plan Discharge Clinical Impression: Early stage of Patient Disposition: Still a Patient Instructions: (ED) Prescriptions: No Action oseltamivir [Tamiflu] 75 mg capsule 75 mg PO Q12H 5 Days Qty: 10 0RF ibuprofen 600 mg tablet 600 mg PO Q6H PRN (Reason: fever or pain) Qty: 30 0RF naproxen 500 mg tablet 500 mg PO BID PRN (Reason: pain) Qty: 20 0RF medroxyprogesterone [Depo-Provera] 150 mg/mL syringe 150 mg IM [id number] Referrals: Rubia Ramirez MD [Primary Care Provider] - Sylvester Gilmore MD [Physician] - Print Language: Arabic
[2024-01-17 13:55] VITALS: BP 101/58; PULSE 86; RESP 18; O2SAT 99
[2024-01-17 14:00] LABS: MANUAL DIFF FLAG NO
[2024-01-17 14:03] LABS: Basophils Percent Auto 0.6 % (0-2); Eosinophils Absolute Auto 0.1 X10*3/uL (0.0-0.4); Eosinophils Percent Auto 1.4 % (0-4); Hematocrit 39.6 % (37.0-47.0); Hemoglobin 13.3 g/dl (12.0-16.0); Imm Gran Abs Auto 0.02 X10*3/uL (0.00-0.03); Imm Gran Pct Auto 0.3 % (0.0-0.4); Lymphocytes Absolute Auto 1.6 X10*3/uL (1.2-4.9); Lymphocytes Percent Auto 25.4 % (20-40); Mean Corpuscular HGB Conc 33.6 g/dl (31.0-35.0); Mean Corpuscular Hemoglobin 27.6 pg (27.0-33.0); Mean Corpuscular Volume 82.2 fL (80.0-98.0); Mean Platelet Volume 10.2 fL (9.4-12.3); Monocytes Absolute Auto 0.4 X10*3/uL (0.1-1.2); Monocytes Percent Auto 6.4 % (2-11); Neutrophils Absolute Auto 4.1 x10*3/uL (2.0-8.3); Neutrophils Percent Auto 65.9 % (45-73); Platelet Count 239 X10*3/uL (160-400); Red Blood Count 4.82 X10*6/uL (4.20-5.50); Red Cell Distribution Width 14.1 % (11.0-16.0); White Blood Count 6.3 X10*3/uL (4.8-10.8)
[2024-01-17 14:04] LABS: UPreg QC Valid YES; Urine Pregnancy POSITIVE (NEGATIVE)
[2024-01-17 14:05] LABS: Appearance Urine Cloudy; Color Urine Yellow; Glucose Urine UA Negative (Negative); Leukocyte Esterase Urine Negative (Negative); Nitrite Urine Negative (Negative); Specific Gravity - Urine 1.025 (1.005-1.025); UMIC TRIGGER UACC YES; Urine Blood Moderate (2+) (Negative); Urine Ketones Negative (Negative); Urine Protein Negative (Neg-Trace)
--- NOTE | 2024-01-17 14:09 | PC.NURSE ---
Pt presents to ED form home, reports positive test this week, confirmed at [facility]. Approx 4-5 weeks preg. Reports vaginal spotting and LLQ ABD pain starting last night after intercourse. Has hx of miscarriage in past and is worried. Reports minimal amount of bleeding, mostly when she wipes. Pain 4/10 in LLQ. Alert and oriented, breathing even and unlabored, skin WNL.
[2024-01-17 14:10] LABS: Prothrombin Time 12.1 SEC (11.1-13.3)
[2024-01-17 14:12] LABS: Partial Thromboplastin Time 27.9 SEC (26.0-36.8)
[2024-01-17 14:17] LABS: Bacteria Urine 1+ (None Seen); Hyaline Casts Urine 0-2 /LPF (0-2); RBC Urine 0-2 /HPF (0-2); WBC Urine 0-5 /HPF (0-5)
[2024-01-17 14:26] LABS: Alanine Aminotransferase 9 U/L (0-31); Albumin Level 4.2 g/dL (3.5-5.0); Alkaline Phosphatase 41 U/L (39-117); Anion Gap 10 (12-20); Aspartate Amino Transferase 12 U/L (5-31); Bilirubin Total 0.4 mg/dL (0.0-1.0); Blood Urea Nitrogen 7 mg/dL (9-16); Calcium 9.1 mg/dL (8.4-10.2); Carbon Dioxide 26 mmol/L (22-29); Chloride 107 mmol/L (96-108); Creatinine Clr Calc Pharmacy 102.9; Estimated Glomerular Filt Rate > 60; Glucose Random 88 mg/dL (60-115); HCG Quantitative 6345 mIU/mL; Potassium 3.7 mmol/L (3.3-5.1); Sodium 139 mmol/L (135-145); Total Protein 6.9 g/dL (6.5-8.0)
--- NOTE | 2024-01-17 15:07 | PC.NURSE ---
Pt taken to US
[2024-01-17 16:44] VITALS: BP 97/55; PULSE 82; RESP 16; O2SAT 99
--- NOTE | 2024-01-17 19:16 | PC.NURSE ---
Assumed care of pt. Pt sitting in [facility], distressed over amount of wait time for US read. MD aware, red is back and MD at bedside. Operating Room Nurse called d/t complicated information and pt does not comprehend. No other acute distress noted at this time.
[2024-01-17 19:19] VITALS: BP 123/74; PULSE 97; RESP 18; O2SAT 100
--- NOTE | 2024-01-17 19:24 | P.CONOB_ITS ---
[facility] [employer] - CN: HPI Data of Consult Consult date: 01/17/24 Primary Care Provider: Rubia Ramirez MD Consult Narrative Narrative: I was consulted on Selina Harvey who is a 28 year old female presented with vaginal spotting started after having sexual intercourse yesterday, patient only sees blood when she wipes after urination, associated with Mild pelvic cramping. The workup in the emergency room include the following: HCG 6345, AB-positive, H&H within normal cc:: CC: OB PMFSH Past Medical History Medical History No known health problems Surgical History Surgical History Hx of appendectomy Hx of section Social History Social History Alcohol intake: never Patient Tobacco Use Status: Never used Tobacco Smoked in Last 30 Days: No Use of substances other than those prescribed or required for medical reasons: No Advance Directives: No Advance Directives Information Provided: No Do you have a plan to hurt others: No Plan Patient : Yes Meds Allergies Allergy/AdvReac Type Severity Reaction Status Date / Time No Known Allergies Allergy Verified 01/17/24 12:38 [No Known Allergies*] Home Medications ?Medication ?Instructions ?Recorded ?Confirmed ?Last Taken ?Type medroxyprogesterone 150 mg/mL 150 mg IM [id number] 12/18/20 Unknown History intramuscular syringe (Depo-Provera) [facility] Physical Exam Vitals Vital signs: Temp Pulse Resp BP Pulse Ox O2 Del Method 98.1 F 97 18 123/74 100 Room Air 01/17/24 12:32 01/17/24 19:19 01/17/24 19:19 01/17/24 19:19 01/17/24 19:19 01/17/24 19:19 BMI result Body Mass Index 38.2 Additional Comments: Physical exam reported to be as the following: Abdomen: Soft and nontender. Bowel sounds normal in all 4 quadrants. No distention noted. No organomegaly noted. No visible injury noted [facility] - Results Labs 01/17/24 13:50 01/17/24 13:50 Labs: Short CBC 01/17/24 Range/Units 13:50 WBC 6.3 (4.8-10.8) X10*3/uL Hgb 13.3 (12.0-16.0) g/dl Hct 39.6 (37.0-47.0) % Plt Count 239 (160-400) X10*3/uL BMP 01/17/24 13:50 Sodium 139 Potassium 3.7 Chloride 107 Carbon Dioxide 26 BUN 7 L Creatinine 0.76 Calcium 9.1 Liver Function 01/17/24 Range/Units 13:50 Total Bilirubin 0.4 (0.0-1.0) mg/dL AST 12 (5-31) U/L ALT 9 (0-31) U/L Alkaline Phosphatase 41 (39-117) U/L Albumin 4.2 (3.5-5.0) g/dL Urine 01/17/24 Range/Units 13:52 Urine Color Yellow Urine Appearance Cloudy Urine pH 6.0 (5.0-9.0) Ur Specific [place] 1.025 (1.005-1.025) Urine Protein Negative (Neg-Trace) mg/dL Urine Glucose (UA) Negative (Negative) mg/dL Urine Test POSITIVE H (NEGATIVE) Imaging US - abdomen: Radiologist's impression: ITS Impressions Pelvic/Transvag US 01/17/24 15:37 IMPRESSION: There is a small possible early gestational sac seen within the endometrial cavity although I do not appreciate any discrete pole for size measurements possibly due to early gestational age. Small amount of fluid is seen in the endometrial cavity as well. This cannot be defined further at this time. Consider serial quantitative beta hCG and sonographic follow-up is needed. Assessment and Plan (1) Early stage of : Status: Acute Discussed with Dr. Lynch the following: Differential diagnosis includes early intrauterine , SAB or ectopic . Recommended repeat hCG quantitative and ultrasound in 48 hours and schedule a follow-up appointment in the office. Discussed signs and symptoms of SAB and ectopic and Instructions to be given to patient to come back to emergency room in case of vaginal bleeding and or pelvic pain. vitamin 1 tablet p.o. q.d. I spent a total of 20 minutes reviewing the chart, communicating to the emergency room provider and documenting in the medical record
[2024-01-17 20:20] VITALS: BP 123/74; PULSE 97; RESP 18; TEMP 36.8; O2SAT 100
== END 2024-01-17 20:21 | disposition home or self-care (01) ==
PROVIDERS: Physician Assistant; Emergency Provider Emergency Medicine; PCP Internal Medicine
DX: O20.9 Hemorrhage in early pregnancy, unspecified (principal); R25.2 Cramp and spasm; Z3A.01 Less than 8 weeks gestation of pregnancy; Z79.899 Other long term (current) drug therapy
CPT/HCPCS: 36415; 76801; 76817; 80053; 81001; 81003; 81025; 84702; 85025; 85610; 85730; 86900; 86901; 99284

== ENCOUNTER → 2024-01-17 13:04 | Outpatient (BNV) | payer MEDICAID, SELFPAY | PROVIDERS: Emergency Provider Emergency Medicine; PCP Internal Medicine; Visit Provider Obstetrics & Gynecology | DX: Z34.90 Encounter for supervision of normal pregnancy, unspecified, unspecified trimester (principal) | CPT/HCPCS: 99283 ==

== ENCOUNTER 2024-01-19 08:33 | Outpatient (REF) | payer MEDICAID, SELFPAY ==
--- NOTE | ~2024-01-19 | US_ITS ---
EXAMINATION: US OBSTETRICAL ULTRASOUND CLINICAL INFORMATION: Encounter for supervision of normal COMPARISON: ultrasound 2 days ago LMP: 12/14/2023. Gestational age by maternal dates is 5 weeks 1 day. Estimated date of delivery by maternal dates is 09/19/2024. TECHNIQUE: Both transabdominal and endovaginal scanning was performed. FINDINGS: There is a question of 2 gestational sacs present but no poles are seen. The 48-hour interval follow-up has not shown the development of a pole. The right ovary measures 3.0 x 2.2 x 2.2 cm with a hypoechoic 1.2 cm lesion. The left ovary measures 4.0 x 3.0 x 3.3 cm with a 2.8 cm possible corpus luteal cyst with some internal debris. Small amount of free fluid present in the cul-de-sac. US/US OB pelvic and transvaginal IMPRESSION: pole was not seen. There is possibly 2 gestational sacs seen. Continued interval follow-up is recommended.
[2024-01-19 11:07] LABS: HCG Quantitative 10221 mIU/mL
== END 2024-01-19 08:34 | disposition home or self-care (01) ==
LOC: HO.US 08:33
PROVIDERS: Absent Provider Emergency Medicine Emergency Medical Services; PCP Internal Medicine; Visit Provider Obstetrics & Gynecology
DX: Z34.90 Encounter for supervision of normal pregnancy, unspecified, unspecified trimester (principal); Z3A.01 Less than 8 weeks gestation of pregnancy
CPT/HCPCS: 36415; 76801; 76817; 84702; 99212

== ENCOUNTER 2024-01-19 10:00 | Outpatient (AMB) | payer MEDICAID, SELFPAY ==
--- NOTE | 2024-01-19 11:58 | MHC.OFFVIS ---
Intake Visit Reasons: HCG and u/s results Allergies No Known Allergies [No Known Allergies*] Allergy (Verified 01/17/24 12:38) HPI Comments Details: Presenting for ED follow-up pay. The patient was seen in the emergency room for vaginal spotting after intercourse was diagnosis with , hCG was 6345. Pelvic ultrasound showed the following: IMPRESSION: There is a small possible early gestational sac seen within the endometrial cavity although I do not appreciate any discrete pole for size measurements possibly due to early gestational age. Small amount of fluid is seen in the endometrial cavity as well. This cannot be defined further at this time. Consider serial quantitative beta hCG and sonographic follow-up is needed. Blood type AB-positive The patient is doing well with no pelvic cramping and or bleeding. Repeat hCG today was 10,221 Repeat pelvic ultrasound showed the following: There is a question of 2 gestational sacs present but no poles are seen. The 48-hour interval follow-up has not shown the development of a pole. The right ovary measures 3.0 x 2.2 x 2.2 cm with a hypoechoic 1.2 cm lesion. The left ovary measures 4.0 x 3.0 x 3.3 cm with a 2.8 cm possible corpus luteal cyst with some internal debris. Small amount of free fluid present in the cul-de-sac. [facility] Medical History No known health problems Surgical History Hx of appendectomy Hx of section Social History Alcohol intake: never Patient Tobacco Use Status: Never used Tobacco Female Reproductive History Menstrual Age of Menarche: 10 Review of Systems Const All systems reviewed & are unremarkable except as noted in HPI and below Reports as per HPI and Reports no additional complaints GI Reports no additional complaints Reports no additional complaints Assessment & Plan Assessment & Plan (1) Early stage of : Comment: Twin gestation Code(s): Z34.90 - Encounter for supervision of normal , unspecified, unspecified trimester Category: Medical Plan: Discussed with the patient the finding on ultrasound showing 2 gestational sac with no pole and the hCG level; SAB warnings were given the patient, she is to call or go to emergency room in case of pelvic cramping and or bleeding. vitamin tab p.o. q.d.. Repeat pelvic ultrasound order in 2 weeks placed. Instructions given the patient to schedule an ultrasound and a follow-up appointment and a follow-up, all questions answered, the patient verbalized understanding. Orders: Orders US OB <= 14 weeks fetus 02/01/24 Z34.90 - Encounter for supervision of normal , unspecified, unspecified trimester Coding Level of Care Code Est Pt Level 3 (29985) Diagnoses Early stage of Z34.90
== END 2024-01-19 12:08 | disposition home or self-care (01) ==
PROVIDERS: PCP Internal Medicine; Referring Provider Internal Medicine; Visit Provider Obstetrics & Gynecology
DX: Z34.90 Encounter for supervision of normal pregnancy, unspecified, unspecified trimester (principal)
CPT/HCPCS: 99213

== ENCOUNTER 2024-02-01 10:57 | Outpatient (REF) | payer MEDICAID, SELFPAY ==
--- NOTE | ~2024-02-01 | US_ITS ---
EXAMINATION: US OBSTETRICAL ULTRASOUND CLINICAL INFORMATION: Supervision of normal . COMPARISON: Obstetrical ultrasound dated 01/19/2024. LMP: 12/14/2023. Gestational age by maternal dates is 7 weeks and 0 days. Estimated date of delivery by maternal dates is 09/19/2024. TECHNIQUE: Ultrasound of the maternal pelvis is performed using transabdominal and transvaginal transducers. Transvaginal imaging is performed due to inadequate visualization transabdominally. M-mode Doppler is also performed. FINDINGS: There is a single intrauterine gestational sac with visible yolk sac, embryo/fetus, and cardiac activity. There is a very small subchorionic hemorrhage. HR: 143 beats per minute. CRL (crown rump length): 0.85 cm (6 weeks and 6 days +/- 4 days). ANALILIA (estimated date of delivery): 09/20/2024 +/- 4 days. MATERNAL ADNEXA: The right maternal ovary measures 3.5 x 1.6 x 1.9 cm. The right ovary contains a 1.1 cm corpus luteum cyst, which requires no imaging follow-up. The left maternal ovary measures 3.5 x 3.0 x 3.1 cm. The left ovary contains a 2.7 cm benign, simple follicle, for which no imaging follow-up is recommended. There is no significant maternal adnexal mass. No maternal pelvic ascites. A 1.0 cm a right uterine fibroid is noted. There is trace nonspecific endocervical anechoic fluid. US/US OB <= 14 weeks fetus IMPRESSION: 1. Single intrauterine gestation with ultrasound gestational age of 6 weeks and 6 days +/- 4 days. A very small subchorionic hemorrhage is seen. 2. Estimated date of delivery is 09/20/2024 +/- 4 days. 3. No maternal adnexal mass or pelvic ascites. Electronically signed by: Pavel Sidhu MD 02/17/2024 11:21 AM EDT
== END 2024-02-01 10:58 | disposition home or self-care (01) ==
LOC: HO.US 10:57
PROVIDERS: PCP Internal Medicine; Visit Provider Obstetrics & Gynecology
DX: Z34.91 Encounter for supervision of normal pregnancy, unspecified, first trimester (principal); Z3A.01 Less than 8 weeks gestation of pregnancy
CPT/HCPCS: 76801; 99212

== ENCOUNTER 2024-02-01 14:27 | Outpatient (AMB) | payer MEDICAID, SELFPAY ==
--- NOTE | 2024-02-01 14:32 | A.OFFVIS_ITS ---
Vital Signs 02/01/24 14:34 Height 4 ft 11 in Weight 190 lb BMI 38.4 BP 112/68 Intake Visit Reasons: US follow up per Inspector Hairspring Required: Yes Inspector Hairspring Language: Bus Info Consultant Services: Inspector Hairspring Present (in person) Inspector Hairspring Name: Sonya TOBIAS Information Interpreted: non-clinical & clinical Accompanied by: Self / Same As Patient Allergies No Known Allergies [No Known Allergies*] Allergy (Verified 02/01/24 14:47) Patient : Yes HPI Comments Details: Presenting for ultrasound follow-up with no complaints no pelvic pain and or vaginal bleeding. On vitamin. Ultrasound done today, report not available yet, unofficial reading showed intrauterine private at 6 weeks and 6 days of gestation, positive heart rate 140's beats per minute, ? Uterine fibroid and a left ovarian cyst in addition possible subchorionic hemorrhage. [facility] Medical History No known health problems Surgical History Hx of appendectomy Hx of section Social History Alcohol intake: never Patient Tobacco Use Status: Never used Tobacco Patient : Yes Female Reproductive History Menstrual Age of Menarche: 10 Review of Systems Const All systems reviewed & are unremarkable except as noted in HPI and below Reports as per HPI and Reports no additional complaints GI Reports no additional complaints Reports no additional complaints Physical Exam Vital Signs: Last Vital Signs BP 112/68 02/01/24 14:34 BMI result Body Mass Index 38.4 Assessment & Plan Assessment & Plan (1) Early stage of : Code(s): Z34.90 - Encounter for supervision of normal , unspecified, unspecified trimester Category: Medical Plan: Discussed with the patient unofficial reading of ultrasound, will wait for the official report. SAB warnings given the patient, she is to call or go to emergency room in case of pelvic pain and or cramping. vitamin tablet p.o. q.d.. Schedule a return visit within 1-2 weeks Coding Level of Care Code Est Pt Level 3 (62941) Diagnoses Early stage of Z34.90
[2024-02-01 14:34] VITALS: BP 112/68; BMI 38.4
== END 2024-02-01 15:35 | disposition home or self-care (01) ==
PROVIDERS: PCP Internal Medicine; Visit Provider Obstetrics & Gynecology
DX: Z34.90 Encounter for supervision of normal pregnancy, unspecified, unspecified trimester (principal)
CPT/HCPCS: 99213

== ENCOUNTER 2024-02-16 16:16 | Emergency (ER) | payer MEDICAID, OTHER, SELFPAY ==
--- NOTE | ~2024-02-16 | US_ITS ---
EXAMINATION: US OBSTETRICAL ULTRASOUND CLINICAL INFORMATION: Pain. COMPARISON: Pelvic ultrasound 02/01/2024. LMP: 12/14/2023. Gestational age by maternal dates is 9 weeks and 1 day. Estimated date of delivery by maternal dates is 09/19/2024. TECHNIQUE: Ultrasound of the maternal pelvis is performed using transabdominal and transvaginal transducers. Transvaginal imaging is performed due to inadequate visualization transabdominally. M-mode Doppler is also performed. FINDINGS: There is a single intrauterine gestational sac with visible yolk sac, embryo/fetus, and cardiac activity. There is no significant subchorionic hemorrhage or hematoma. HR: 176 beats per minute. CRL (crown rump length): 2.51 cm (9 weeks and 2 days +/- 4 days). ANALILIA (estimated date of delivery): 09/18/2024 +/- 4 days. MATERNAL ADNEXA: The right maternal ovary measures 2.1 x 1.4 x 1.6 cm. The left maternal ovary measures 3.4 x 2.5 x 3.2 cm. Simple appearing dominant follicle in the left ovary measuring 2.5 cm, for which no imaging follow-up is recommended. There is no significant maternal adnexal mass. No maternal pelvic ascites. US/US OB <= 14 weeks fetus IMPRESSION: 1. Single intrauterine gestation with ultrasound gestational age of 9 weeks and 2 days +/- 4 days. 2. Estimated date of delivery is 09/18/2024 +/- 4 days. 3. No maternal adnexal mass or pelvic ascites. Electronically signed by: Amber Ivan MD 02/16/2024 06:32 PM EDT
--- NOTE | 2024-02-16 16:21 | ED_ITS ---
HPI - General Adult General Chief complaint: Abdominal Pain Stated complaint: Abd/back pain - Time Seen by Provider: 02/16/24 17:52 Source: patient Limitations: language barrier History of Present Illness ED Provider: Emily Mancera PA-C HPI narrative: 28-year-old F approximately 9 weeks , presents with lower abdominal cramping. Patient states she developed cramping yesterday, her fuel cell designer told her she needs to be seen in the emergency department. Patient had an ultrasound 2 weeks ago to verify that she indeed has an intrauterine . Denies vaginal discharge, vaginal bleeding, dysuria, hematuria. Denies diarrhea or fever. Related Data Previous Rx's ?Medication ?Instructions ?Recorded ibuprofen 600 mg tablet 600 mg PO Q6H PRN fever or pain 05/18/22 #30 tabs oseltamivir 75 mg capsule (Tamiflu) 75 mg PO Q12H 5 days #10 caps 05/18/22 naproxen 500 mg tablet 500 mg PO BID PRN pain #20 tabs 04/16/23 Allergies Allergy/AdvReac Type Severity Reaction Status Date / Time No Known Allergies Allergy Verified 02/16/24 16:24 [No Known Allergies*] PMFSH Past Medical History Medical History No known health problems Surgical History Hx of appendectomy Hx of section Social History Social History Alcohol intake: never Patient Tobacco Use Status: Never used Tobacco Smoked in Last 30 Days: No Use of substances other than those prescribed or required for medical reasons: No Advance Directives: No Advance Directives Information Provided: No Do you have a plan to hurt others: No Plan Patient : Yes Physical Exam ED Vital Signs: Vital Signs - 24 hr 02/16/24 16:22 02/16/24 18:01 Temperature 98 F 98.8 F Pulse Rate 98 87 Respiratory Rate 19 20 Blood Pressure 120/71 119/76 Pulse Oximetry 99 99 Oxygen Delivery Method Room Air Room Air BMI result Body Mass Index 40.0 Course Course Course Narrative: RME, this is a rapid medical exam performed by Ramiro Shell please refer to primary provider for complete H&P- [age] old female who is approximately 9 weeks presents for evaluation of lower abdominal pain. Denies any vaginal bleeding or discharge. She follows with OBGYN in [place] and has an appointment tomorrow. Plan for labs, type and screen, urinalysis and ultrasound. She does state that she has had an ultrasound 2 weeks ago that confirmed an intrauterine Medications Administered Discontinued Medications Generic Name Dose Route Start Last Admin Trade Name Freliliana PRN Reason Stop Dose Admin Acetaminophen 975 mg 02/16/24 19:17 02/16/24 19:22 Acetaminophen 325 Mg Tablet PO 02/16/24 19:18 975 mg ONCE ONE Administration Medical Decision Making Medical Decision Making [facility] Narrative: 28-year-old F approximately 9 weeks , presents with lower abdominal cramping. Patient states she developed cramping yesterday, her fuel cell designer told her she needs to be seen in the emergency department. Patient had an ultrasound 2 weeks ago to verify that she indeed has an intrauterine . Denies vaginal discharge, vaginal bleeding, dysuria, hematuria. Denies diarrhea or fever. Patient also complains of a headache. Denies viral related symptoms. Problem: History: Per patient I have considered the following differential diagnoses: Subchorionic hemorrhage, threatened , symptoms of early , preeclampsia, diverticulitis, UTI, TOA, torsion viral syndrome Plan: The patient is assessment began out in [facility], a pelvic ultrasound was ordered including screening labs, type and screen with Rh factor and a urinalysis. Her assessment is unremarkable, she likely is experiencing cramping associated with her early . She has no associated symptoms to suggest diverticulitis, and no other pathology was found on the pelvic ultrasound. She can follow up with her OBGYN this week at her next scheduled visit. Given headache, I did consider preeclampsia, however she is not overtly hypertensive, she is not altered, her LFTs are normal and she is not spilling protein in her urine. I have independently reviewed the following tests: Labs: No leukocytosis, not anemic, no electrolyte abnormality, urine not infected Transvaginal ultrasound:OMPARISON: Pelvic ultrasound 02/01/2024. LMP: 12/14/2023. Gestational age by maternal dates is 9 weeks and 1 day. Estimated date of delivery by maternal dates is 09/19/2024. TECHNIQUE: Ultrasound of the maternal pelvis is performed using transabdominal and transvaginal transducers. Transvaginal imaging is performed due to inadequate visualization transabdominally. M-mode Doppler is also performed. FINDINGS: There is a single intrauterine gestational sac with visible yolk sac, embryo/fetus, and cardiac activity. There is no significant subchorionic hemorrhage or hematoma. HR: 176 beats per minute. CRL (crown rump length): 2.51 cm (9 weeks and 2 days +/- 4 days). ANALILIA (estimated date of delivery): 09/18/2024 +/- 4 days. MATERNAL ADNEXA: The right maternal ovary measures 2.1 x 1.4 x 1.6 cm. The left maternal ovary measures 3.4 x 2.5 x 3.2 cm. Simple appearing dominant follicle in the left ovary measuring 2.5 cm, for which no imaging follow-up is recommended. There is no significant maternal adnexal mass. No maternal pelvic ascites. US/US OB <= 14 weeks fetus IMPRESSION: 1. Single intrauterine gestation with ultrasound gestational age of 9 weeks and 2 days +/- 4 days. 2. Estimated date of delivery is 09/18/2024 +/- 4 days. 3. No maternal adnexal mass or pelvic ascites. Electronically signed by: Amber Ivan MD 02/16/2024 06:32 PM EDT Lab Data 02/16/24 16:36 02/16/24 16:36 Labs: Lab Results 02/16/24 Range/Units 16:36 WBC 7.7 (4.8-10.8) X10*3/uL RBC 4.67 (4.20-5.50) X10*6/uL Hgb 12.8 (12.0-16.0) g/dl Hct 38.0 (37.0-47.0) % MCV 81.4 (80.0-98.0) fL MCH 27.4 (27.0-33.0) pg MCHC 33.7 (31.0-35.0) g/dl RDW 13.6 (11.0-16.0) % Plt Count 240 (160-400) X10*3/uL MPV 10.0 (9.4-12.3) fL Immature Gran % (Auto) 0.4 (0.0-0.4) % Neut % (Auto) 68.6 (45-73) % Lymph % (Auto) 23.5 (20-40) % [place] % (Auto) 6.0 (2-11) % Eos % (Auto) 0.9 (0-4) % Baso % (Auto) 0.6 (0-2) % Lymph # (Auto) 1.8 (1.2-4.9) X10*3/uL [place] # (Auto) 0.5 (0.1-1.2) X10*3/uL Eos # (Auto) 0.1 (0.0-0.4) X10*3/uL Baso # (Auto) 0.1 (0.0-0.2) X10*3/uL Abs Immat Gran (auto) 0.03 (0.00-0.03) X10*3/uL Absolute Neuts (auto) 5.3 (2.0-8.3) x10*3/uL Absolute Nucleated RBC 0.000 (0.0-0.012) X10*3/uL Nucleated RBC % (auto) 0.0 (0.0-0.2) /100WBC Sodium 136 (135-145) mmol/L Potassium 3.9 (3.3-5.1) mmol/L Chloride 107 (96-108) mmol/L Carbon Dioxide 22 (22-29) mmol/L Anion Gap 11 L (12-20) BUN 7 L (9-16) mg/dL Creatinine 0.59 (0.5-1.4) mg/dL Estim Creat Clear Calc 136.1 Estimated GFR > 60 Random Glucose 85 (60-115) mg/dL Calcium 9.1 (8.4-10.2) mg/dL Total Bilirubin 0.2 (0.0-1.0) mg/dL AST 14 (5-31) U/L ALT 16 (0-31) U/L Alkaline Phosphatase 35 L (39-117) U/L Total Protein 6.9 (6.5-8.0) g/dL Albumin 3.9 (3.5-5.0) g/dL Lipase 21 (8-78) U/L Beta HCG, Quant 587435 mIU/mL Urine Color Yellow Urine Appearance Cloudy Urine pH 5.5 (5.0-9.0) Ur Specific [place] >= 1.030 H (1.005-1.025) Urine Protein Negative (Neg-Trace) mg/dL Urine Glucose (UA) Negative (Negative) mg/dL Urine Ketones Negative (Negative) mg/dL Urine Blood Negative (Negative) Urine Nitrite Negative (Negative) Ur Leukocyte Esterase Moderate (2+) H (Negative) Urine RBC 0-2 (0-2) /HPF Urine WBC 21-50 H (0-5) /HPF Ur Squamous Epith Cells 11-20 (0-2) /HPF Urine Bacteria 2+ (None Seen) Hyaline Casts 0-2 (0-2) /LPF Blood Type AB Positive Discharge Plan Discharge Clinical Impression: Abdominal pain, and not yet delivered in first trimester, Headache Patient Disposition: Home, Self-Care Additional Instructions: The pelvic ultrasound was normal. All of your labs including the urinalysis were normal as well. Woman can have abdominal cramping early in . Keep your pending follow up with your OBGYN. In regard to the headache, you can use [id number] Tylenol 1000 mg taken every 8 hours with food. Prescriptions: No Action oseltamivir [Tamiflu] 75 mg capsule 75 mg PO Q12H 5 Days Qty: 10 0RF ibuprofen 600 mg tablet 600 mg PO Q6H PRN (Reason: fever or pain) Qty: 30 0RF naproxen 500 mg tablet 500 mg PO BID PRN (Reason: pain) Qty: 20 0RF Print Language: Scottish
[2024-02-16 16:22] VITALS: BP 120/71; PULSE 98; RESP 19; TEMP 36.6; O2SAT 99; BMI 40.0
[2024-02-16 16:43] LABS: MANUAL DIFF FLAG NO
[2024-02-16 16:45] LABS: Basophils Absolute Auto 0.1 X10*3/uL (0.0-0.2); Basophils Percent Auto 0.6 % (0-2); Eosinophils Absolute Auto 0.1 X10*3/uL (0.0-0.4); Eosinophils Percent Auto 0.9 % (0-4); Hemoglobin 12.8 g/dl (12.0-16.0); Imm Gran Abs Auto 0.03 X10*3/uL (0.00-0.03); Imm Gran Pct Auto 0.4 % (0.0-0.4); Lymphocytes Absolute Auto 1.8 X10*3/uL (1.2-4.9); Lymphocytes Percent Auto 23.5 % (20-40); Mean Corpuscular HGB Conc 33.7 g/dl (31.0-35.0); Mean Corpuscular Hemoglobin 27.4 pg (27.0-33.0); Mean Corpuscular Volume 81.4 fL (80.0-98.0); Monocytes Absolute Auto 0.5 X10*3/uL (0.1-1.2); Neutrophils Absolute Auto 5.3 x10*3/uL (2.0-8.3); Neutrophils Percent Auto 68.6 % (45-73); Platelet Count 240 X10*3/uL (160-400); Red Blood Count 4.67 X10*6/uL (4.20-5.50); Red Cell Distribution Width 13.6 % (11.0-16.0); White Blood Count 7.7 X10*3/uL (4.8-10.8)
[2024-02-16 16:46] LABS: Appearance Urine Cloudy; Color Urine Yellow; Glucose Urine UA Negative (Negative); Leukocyte Esterase Urine Moderate (2+) (Negative); Nitrite Urine Negative (Negative); PH 5.5 (5.0-9.0); Specific Gravity - Urine >= 1.030 (1.005-1.025); UMIC TRIGGER UACC YES; Urine Blood Negative (Negative); Urine Ketones Negative (Negative); Urine Protein Negative (Neg-Trace)
[2024-02-16 17:00] LABS: Alanine Aminotransferase 16 U/L (0-31); Albumin Level 3.9 g/dL (3.5-5.0); Alkaline Phosphatase 35 U/L (39-117); Anion Gap 11 (12-20); Aspartate Amino Transferase 14 U/L (5-31); Bilirubin Total 0.2 mg/dL (0.0-1.0); Blood Urea Nitrogen 7 mg/dL (9-16); Calcium 9.1 mg/dL (8.4-10.2); Carbon Dioxide 22 mmol/L (22-29); Chloride 107 mmol/L (96-108); Creatinine Clr Calc Pharmacy 136.1; Estimated Glomerular Filt Rate > 60; Glucose Random 85 mg/dL (60-115); Lipase 21 U/L (8-78); Potassium 3.9 mmol/L (3.3-5.1); Sodium 136 mmol/L (135-145); Total Protein 6.9 g/dL (6.5-8.0)
[2024-02-16 17:22] LABS: Bacteria Urine 2+ (None Seen); Hyaline Casts Urine 0-2 /LPF (0-2); RBC Urine 0-2 /HPF (0-2); UACC Culture Trigger YES; WBC Urine 21-50 /HPF (0-5)
[2024-02-16 18:01] VITALS: BP 119/76; PULSE 87; RESP 20; TEMP 37.1; O2SAT 99
[2024-02-16] MEDS: Acetaminophen 325 MG TABLET 975 MG PO (19:22)
[2024-02-16 19:44] VITALS: BP 119/76; PULSE 87; RESP 20; TEMP 37.1; O2SAT 99
== END 2024-02-16 19:49 | disposition home or self-care (01) ==
PROVIDERS: Physician Assistant; Emergency Provider Emergency Medicine; PCP Internal Medicine
DX: O26.91 Pregnancy related conditions, unspecified, first trimester (principal); R10.9 Unspecified abdominal pain; Z3A.09 9 weeks gestation of pregnancy; Z79.899 Other long term (current) drug therapy
CPT/HCPCS: 36415; 76801; 80053; 81001; 83690; 84702; 85025; 86900; 86901; 87086; 99284

== ENCOUNTER 2024-02-17 10:07 | Outpatient (AMB) | payer MEDICAID, SELFPAY ==
--- NOTE | 2024-02-17 10:20 | A.OFFVIS_ITS ---
Vital Signs 02/17/24 10:23 Height 4 ft 11 in Weight 196 lb 3.382 oz BMI 39.6 Intake Visit Reasons: Follow up Adult Neuropsychologist Required: Yes Adult Neuropsychologist Language: Ag Service Manager Services: Adult Neuropsychologist Present (in person) Adult Neuropsychologist Name: Sonya TOBIAS Information Interpreted: non-clinical & clinical Accompanied by: Self / Same As Patient Allergies No Known Allergies [No Known Allergies*] Allergy (Verified 02/17/24 10:23) Patient : Yes HPI Comments Details: Presenting for ultrasound follow-up doing well with no complaints, no pelvic cramping and or bleeding. On vitamin 1 tablet p.o. q.d. but is having nausea from it and is asking for alternatives. Ob ultrasound done on 02/15 showed the following: IMPRESSION: 1. Single intrauterine gestation with ultrasound gestational age of 9 weeks and 2 days +/- 4 days. 2. Estimated date of delivery is 09/18/2024 +/- 4 days. 3. No maternal adnexal mass or pelvic ascites. [facility] Medical History No known health problems Surgical History Hx of appendectomy Hx of section Social History Alcohol intake: never Patient Tobacco Use Status: Never used Tobacco Female Reproductive History Menstrual Age of Menarche: 10 Review of Systems Const All systems reviewed & are unremarkable except as noted in HPI and below Reports as per HPI and Reports no additional complaints GI Reports no additional complaints Reports no additional complaints Assessment & Plan Assessment & Plan (1) Early stage of : Code(s): Z34.90 - Encounter for supervision of normal , unspecified, unspecified trimester Category: Medical Plan: Discussed with the patient the finding on ultrasound, the patient was reassured. SAB warnings given the patient, instructions given the patient to call or go to emergency room in case of pelvic cramping and or vaginal bleeding to take her folic acid 400 jazmyn cg 1 tablet p.o. q.d. sent to the patient's pharmacy. The patient has an initial OB appointment [facility] on 02/19/2024. All questions answered, the patient verbalized understanding Medications: New folic acid 400 mcg PO DAILY 60 tabs 0RF Coding Level of Care Code Est Pt Level 3 (14986) Diagnoses Early stage of Z34.90
[2024-02-17 10:23] VITALS: BMI 39.6
== END 2024-02-17 10:50 | disposition home or self-care (01) ==
LOC: HO.HWS 10:07
PROVIDERS: PCP Internal Medicine; Visit Provider Obstetrics & Gynecology
DX: Z34.90 Encounter for supervision of normal pregnancy, unspecified, unspecified trimester (principal)
CPT/HCPCS: 99213

== ENCOUNTER → 2024-02-17 10:07 | Outpatient (BNVA) | payer MEDICAID, OTHER, SELFPAY | PROVIDERS: PCP Internal Medicine; Visit Provider Obstetrics & Gynecology | DX: Z34.90 Encounter for supervision of normal pregnancy, unspecified, unspecified trimester (principal); Z3A.09 9 weeks gestation of pregnancy | CPT/HCPCS: 99212 ==

== ENCOUNTER 2024-03-14 18:05 | Outpatient (REF) | payer MEDICAID, SELFPAY ==
[2024-03-15 04:57] LABS: CT PCR NOT DETECTED (Not Detect.); NG PCR NOT DETECTED (Not Detect.)
[2024-03-15 10:19] LABS: Bacterial Vaginosis PCR NEGATIVE (Negative); Candida Group PCR DETECTED (Not Detect); Candida glab krusei PCR NOT DETECTED (Not Detect); Trichomonas vaginalis PCR NOT DETECTED (Not Detect)
== END 2024-03-14 18:06 | disposition home or self-care (01) ==
LOC: HO.HHCLNP 18:05
PROVIDERS: Visit Provider Internal Medicine
DX: N76.0 Acute vaginitis (principal)
CPT/HCPCS: 0352U; 87491; 87591

== ENCOUNTER 2024-06-19 20:25 | Emergency (ER) | payer MEDICAID, SELFPAY ==
[2024-06-19 20:41] VITALS: BP 105/71; PULSE 125; RESP 18; TEMP 36.9; O2SAT 98; BMI 39.4
--- NOTE | 2024-06-19 20:48 | ED_ITS ---
HPI - General Adult General Chief complaint: General Medical Stated complaint: 28 weeks preg/head congestion Time Seen by Provider: 06/19/24 22:28 Source: patient Mode of arrival: ambulatory Limitations: no limitations Related Data Previous Rx's ?Medication ?Instructions ?Recorded ibuprofen 600 mg tablet 600 mg PO Q6H PRN fever or pain 05/18/22 #30 tabs oseltamivir 75 mg capsule (Tamiflu) 75 mg PO Q12H 5 days #10 caps 05/18/22 naproxen 500 mg tablet 500 mg PO BID PRN pain #20 tabs 04/16/23 folic acid 400 mcg tablet 400 mcg PO DAILY #60 tabs 02/17/24 acetaminophen 500 mg tablet 500 mg PO Q6H PRN fever or pain 06/19/24 #30 tabs guaifenesin 600 mg tablet, 600 mg PO BID PRN cough #20 tabs 06/19/24 extended release 12 hr Allergies Allergy/AdvReac Type Severity Reaction Status Date / Time No Known Allergies Allergy Verified 06/19/24 20:48 [No Known Allergies*] PMFSH Past Medical History Medical History No known health problems Surgical History Hx of appendectomy Hx of section Social History Social History Alcohol intake: never Patient Tobacco Use Status: Never used Tobacco Advance Directives: No Advance Directives Information Provided: Yes Physical Exam ED Vital Signs: Vital Signs - 24 hr 06/19/24 20:41 Temperature 98.4 F Pulse Rate 125 H Respiratory Rate 18 Blood Pressure 105/71 Pulse Oximetry 98 Oxygen Delivery Method Room Air BMI result Body Mass Index 39.4 Course Course Course Narrative: RME: 28-year-old female at 28 weeks presents to ED for head catrina estion, body aches, and lower abdominal discomfort. Patient denies any vaginal bleeding. Patient is brought back to the ED immediately to be evaluated for possible with transfer. Medications Administered Discontinued Medications Generic Name Dose Route Start Last Admin Trade Name Freq PRN Reason Stop Dose Admin Acetaminophen 650 mg 06/19/24 22:42 06/19/24 23:09 Acetaminophen 325 Mg Tablet PO 06/19/24 22:43 650 mg ONCE ONE Administration Guaifenesin 10 ml 06/19/24 22:42 06/19/24 23:08 Guaifenesin 200 Mg/10 Ml 10 Ml Liquid PO 06/19/24 22:43 10 ml ONCE ONE Administration Medical Decision Making Medical Decision Making MDM Narrative: Patient with mild URI symptoms COVID flu RSV strep negative likely other virus discharge patient home on supportive treatment Lab Data MDM Lab Attestation statement: I reviewed the patient's lab results. Labs: Lab Results 06/19/24 06/19/24 Range/Units 21:40 23:08 Influenza Type A (PCR) NEGATIVE (Negative) Influenza Type B (PCR) NEGATIVE (Negative) RSV RNA Qual (PCR) NEGATIVE (Negative) SARS-CoV-2 RNA (RT-PCR) NEGATIVE (Negative) S. pyogenes GrpA PONCHO Negative (Negative) Discharge Plan Discharge Clinical Impression: Upper respiratory infection, viral Patient Disposition: Home, Self-Care Instructions: Upper Respiratory Infection (ED) Additional Instructions: Drink plenty of fluids Your COVID influenza RSV and strep test are negative Likely have some other virus causing the symptoms Take Tylenol for fever/body ache Robitussin for cough Follow with your PCP Prescriptions: New guaifenesin 600 mg tablet extended release 12hr 600 mg PO BID PRN (Reason: cough) Qty: 20 0RF acetaminophen 500 mg tablet 500 mg PO Q6H PRN (Reason: fever or pain) Qty: 30 0RF No Action oseltamivir [Tamiflu] 75 mg capsule 75 mg PO Q12H 5 Days Qty: 10 0RF ibuprofen 600 mg tablet 600 mg PO Q6H PRN (Reason: fever or pain) Qty: 30 0RF naproxen 500 mg tablet 500 mg PO BID PRN (Reason: pain) Qty: 20 0RF folic acid 400 mcg tablet 400 mcg PO DAILY Qty: 60 0RF Print Language: Japanese
[2024-06-19 22:20] LABS: Influenza A PCR NEGATIVE (Negative); Influenza B PCR NEGATIVE (Negative); Resp Syncy Virus RNA Qual PCR NEGATIVE (Negative); SARS COV2 PCR INHOUSE NEGATIVE (Negative)
--- NOTE | 2024-06-19 22:42 | ED.URI ---
HPI - URI/Sore Throat General Chief Complaint: General Medical Stated Complaint: 28 weeks preg/head congestion Time Seen by Provider: 06/19/24 22:28 Source: patient Mode of arrival: ambulatory Limitations: no limitations History of Present Illness ED Provider: HPI Narrative: Patient comes here for upper respiratory symptoms with clear rhinorrhea dry cough headache body aches yesterday patient is 28 weeks any abdominal discomfort or vaginal bleed fetus is moving normally Related Data Previous Rx's ?Medication ?Instructions ?Recorded ibuprofen 600 mg tablet 600 mg PO Q6H PRN fever or pain 05/18/22 #30 tabs oseltamivir 75 mg capsule (Tamiflu) 75 mg PO Q12H 5 days #10 caps 05/18/22 naproxen 500 mg tablet 500 mg PO BID PRN pain #20 tabs 04/16/23 folic acid 400 mcg tablet 400 mcg PO DAILY #60 tabs 02/17/24 acetaminophen 500 mg tablet 500 mg PO Q6H PRN fever or pain 06/19/24 #30 tabs guaifenesin 600 mg tablet, 600 mg PO BID PRN cough #20 tabs 06/19/24 extended release 12 hr Allergies Allergy/AdvReac Type Severity Reaction Status Date / Time No Known Allergies Allergy Verified 06/19/24 20:48 [No Known Allergies*] Review of Systems Review of Systems: Yes all other systems are reviewed and are negative PMFSH Past Medical History Medical History No known health problems Surgical History Hx of appendectomy Hx of section Social History Social History Alcohol intake: never Patient Tobacco Use Status: Never used Tobacco Advance Directives: No Advance Directives Information Provided: Yes Physical Exam Vital Signs: Vital Signs: Last Vital Signs Temp 97.8 F 06/19/24 23:45 Pulse 106 H 06/19/24 23:45 Resp 16 06/19/24 23:45 BP 108/69 06/19/24 23:45 Pulse Ox 98 06/19/24 23:45 O2 Del Method Room Air 06/19/24 23:45 BMI result Body Mass Index 39.4 Appearance: Alert. Oriented X3. No acute distress. Eyes: No pallor or icterus ENT: Pharynx erythematous clear rhinorrhea. Oral Mucosa moist Neck: Normal inspection. Neck supple. CVS: Normal heart rate and rhythm. Pulses normal. Respiratory: No respiratory distress. Equal air entry bilateral, no wheezing/rales/rhonchi Abdomen: Soft and nontender. Bowel sounds are present, gravid urine no CVA tenderness Skin: Skin warm and dry. Normal skin color. Normal skin turgor. Extremities: No lower extremity edema. No calf tenderness Neuro: Oriented X 3. No motor deficit. Medications Administered Discontinued Medications Generic Name Dose Route Start Last Admin Trade Name Freq PRN Reason Stop Dose Admin Acetaminophen 650 mg 06/19/24 22:42 06/19/24 23:09 Acetaminophen 325 Mg Tablet PO 06/19/24 22:43 650 mg ONCE ONE Administration Guaifenesin 10 ml 06/19/24 22:42 06/19/24 23:08 Guaifenesin 200 Mg/10 Ml 10 Ml Liquid PO 06/19/24 22:43 10 ml ONCE ONE Administration Medical Decision Making Medical Decision Making [facility] Narrative: Patient denied any abdominal discomfort has a normal movements comes here with upper URI symptoms COVID flu RSV negative strep also negative patient prescribed Robitussin advised to follow with PCP Lab Data MDM Lab Attestation statement: I reviewed the patient's lab results. Labs: Lab Results 06/19/24 06/19/24 Range/Units 21:40 23:08 Influenza Type A (PCR) NEGATIVE (Negative) Influenza Type B (PCR) NEGATIVE (Negative) RSV RNA Qual (PCR) NEGATIVE (Negative) SARS-CoV-2 RNA (RT-PCR) NEGATIVE (Negative) S. pyogenes GrpA PONCHO Negative (Negative) Discharge Plan Discharge Clinical Impression: Upper respiratory infection, viral Patient Disposition: Home, Self-Care Instructions: Upper Respiratory Infection (ED) Additional Instructions: Drink plenty of fluids Your COVID influenza RSV and strep test are negative Likely have some other virus causing the symptoms Take Tylenol for fever/body ache Robitussin for cough Follow with your PCP Prescriptions: New guaifenesin 600 mg tablet extended release 12hr 600 mg PO BID PRN (Reason: cough) Qty: 20 0RF acetaminophen 500 mg tablet 500 mg PO Q6H PRN (Reason: fever or pain) Qty: 30 0RF No Action oseltamivir [Tamiflu] 75 mg capsule 75 mg PO Q12H 5 Days Qty: 10 0RF ibuprofen 600 mg tablet 600 mg PO Q6H PRN (Reason: fever or pain) Qty: 30 0RF naproxen 500 mg tablet 500 mg PO BID PRN (Reason: pain) Qty: 20 0RF folic acid 400 mcg tablet 400 mcg PO DAILY Qty: 60 0RF Interventions: ED Discharge Assessment Last Done: 06/19/24 23:45 Discharge Date/Time: 06/19/24 23:47 Print Language: Kinyarwanda
[2024-06-19] MEDS: guaiFENesin 200 MG/10 ML 10 ML LIQUID PO (23:08)
[2024-06-19] MEDS: Acetaminophen 325 MG TABLET 650 MG PO (23:09)
[2024-06-19 23:21] LABS: IDNOW Serial# 58CA691E; Strep A Nucleic Acid Negative (Negative)
[2024-06-19 23:44] VITALS: BP 108/69; PULSE 106; RESP 16; TEMP 36.6; O2SAT 98
[2024-06-19 23:45] VITALS: BP 108/69; PULSE 106; RESP 16; TEMP 36.6; O2SAT 98
== END 2024-06-19 23:47 | disposition home or self-care (01) ==
PROVIDERS: Physician Assistant; Emergency Provider Internal Medicine; PCP Internal Medicine
DX: J06.9 Acute upper respiratory infection, unspecified (principal); O26.93 Pregnancy related conditions, unspecified, third trimester; J34.89 Other specified disorders of nose and nasal sinuses; R10.2 Pelvic and perineal pain; Z3A.28 28 weeks gestation of pregnancy; Z03.818 Encounter for observation for suspected exposure to other biological agents ruled out
CPT/HCPCS: 0241U; 87651; 99284

== ENCOUNTER 2025-04-03 17:24 | Outpatient (REF) | payer MEDICAID, SELFPAY ==
[2025-04-04 09:36] LABS: Bacterial Vaginosis PCR POSITIVE (Negative); Candida Group PCR NOT DETECTED (Not Detect); Candida glab krusei PCR NOT DETECTED (Not Detect); Trichomonas vaginalis PCR NOT DETECTED (Not Detect)
[2025-04-04 10:18] LABS: CT PCR Urine NOT DETECTED (Not Detect.); NG PCR Urine NOT DETECTED (Not Detect.)
== END 2025-04-03 17:25 | disposition home or self-care (01) ==
LOC: HO.HHCLNP 17:24
PROVIDERS: Visit Provider Internal Medicine
DX: Z20.2 Contact with and (suspected) exposure to infections with a predominantly sexual mode of transmission (principal); N76.1 Subacute and chronic vaginitis
CPT/HCPCS: 81515; 87491; 87591

== ENCOUNTER 2025-06-12 12:04 | Emergency (ER) | payer MEDICAID, SELFPAY ==
[2025-06-12 13:02] VITALS: BP 119/73; PULSE 98; RESP 16; TEMP 36.8; O2SAT 98; BMI 83.7
--- NOTE | 2025-06-12 13:03 | ED_ITS ---
HPI - General Adult General Chief complaint: Upper Respiratory Symptoms Stated complaint: Fever, Headaches, Chest Pain, Coughing Time Seen by Provider: 06/12/25 14:48 Source: patient, family and RN notes reviewed Mode of arrival: ambulatory Limitations: no limitations History of Present Illness ED Provider: Diana Javier PA-C HPI narrative: ? 2?3 day history of upper respiratory symptoms. ? Reports throat discomfort and ?pain in my head, ear, and trachea.? ? Denies cough, vomiting, or diarrhea. ? Denies high fever. ? Taking acetaminophen (Tylenol) with some relief. ? Several family members recently diagnosed with streptococcal pharyngitis or influenza; patient aware of exposure risk. ? No work note needed. Review of Systems: ? HEENT: Positive for sore throat, head pain, ear discomfort. ? Respiratory: Denies cough, dyspnea. ? GI: Denies nausea, vomiting, diarrhea. ? Constitutional: Denies fever. Family History: Household members recently diagnosed with strep throat and influenza. Related Data Previous Rx's ?Medication ?Instructions ?Recorded ibuprofen 600 mg tablet 600 mg PO Q6H PRN fever or p ain 05/18/22 #30 tabs oseltamivir 75 mg capsule (Tamiflu) 75 mg PO Q12H 5 da ys #10 caps 05/18/22 naproxen 500 mg tablet 500 mg PO BID PRN pain #20 t abs 04/16/23 folic acid 400 mcg tablet 400 mcg PO DAILY #60 tabs acetaminophen 500 mg tablet 500 mg PO Q6H PRN fever or pain 06/19/24 #30 tabs guaifenesin 600 mg tablet, 600 mg PO BID PRN cough #20 tabs 06/19/24 extended release 12 hr benzonatate 200 mg capsule 200 mg PO TID PRN cough #21 caps 06/12/25 lidocaine HCl 2 % mucosal solution 5 ml mucous membran e QID PRN pain 06/12/25 (Lidocaine Viscous) #100 mL Allergies Allergy/AdvReac Type Severity Reaction Status Date / Time No Known Allergies (No Known Allergy Verified 06/12/25 13:03 Allergies*) Review of Systems Review of Systems: Yes all other systems are reviewed and are negative PMFSH Past Medical History Attestation statement: The following information was validated with the patient. Source: old records reviewed, obtained from family and nursing notes reviewed Medical History No known health problems Surgical History Hx of appendectomy Hx of section Social History Social History Alcohol intake: never Patient Tobacco Use Status: Never used Tobacco Advance Directives: No Advance Directives Information Provided: No Do you have a plan to hurt others: No Plan Physical Exam ED Exam Exam: General: Appears in no acute distress, appears well-nourished body habitus is overweight (188 is likely lbs not kg as BMI of 83 does not match patient), appears stated age. No septic or ill-appearing. Vitals were reviewed as normal, and PMH/Social and Surgical hx was reviewed, including allergies and current medications. . Head: Normocephalic, no obvious trauma or skin lesions noted. Eyes: EOMI ENMT: moist oral mucosa, uvula is midline no trismus, no edematous turbinates, TMs and canals clear Neck: trachea midline, no lymphadenopathy Cardiovascular: peripheral perfusion normal, Regular heart rate regular rhythm Respiratory: no respiratory distress, lungs CTAB Abdomen: non-distended Extremities: warm and moving without difficulty Psych: Cooperative Neuro: Alert and oriented. Vital Signs: Vital Signs - 24 hr 06/12/25 13:02 Temperature 98.3 F Pulse Rate 98 Respiratory Rate 16 Blood Pressure 119/73 Pulse Oximetry 98 Oxygen Delivery Method Room Air BMI result Body Mass Index 83.7 Course Course Course Narrative: Rapid medical examination performed in triage by Sylvia Levy PA-C: Patient is a 29 year old female presenting to the emergency department with a fever and feeling generally unwell. Detailed physical exam and review of systems are deferred to the hand expansion envelope maker. Swabs ordered. Patient placed back in the waiting room pending room availability and results. Medical Decision Making Medical Decision Making MDM Narrative: The patient presented with a brief history of upper respiratory symptoms. COVID- 19, RSV, influenza, and strep tests were all negative. Physical examination was reassuring, with no evidence of bacterial infection or pneumonia. Based on these findings, the decision was made to treat symptomatically for a presumed viral upper respiratory infection, and the patient was instructed to return if symptoms worsen or new symptoms develop. Patient presents with a short-duration viral upper respiratory illness without concerning findings on exam. No evidence of strep pharyngitis, influenza, otitis media, or pneumonia at this time. Problem #1: Viral Upper Respiratory Infection (Common Cold) Assessment: 2?3 day course consistent with self-limited viral URI; normal oropharyngeal exam and clear lungs support this diagnosis. Plan: - Symptomatic treatment: continue acetaminophen as needed for pain/fever. - Prescribed topical throat anesthetic spray for sore throat relief. - Prescribed nasal spray to reduce post-nasal drip. - Return precautions: advised to seek care if symptoms worsen, high fever develops, or new symptoms emerge. Follow-up PRN. Differential Diagnosis Differential Diagnoses: The differential diagnosis associated with the presentation includes AOM (normal), AOE (normal) bacterial sinusitis (0/3), strep/ tonsillitis (SHELTER score is 0, testing neg), bronchitis/pneumonia (lungs clear, no fever improved sxs, CXR not indicated, PO abx/steroids not indicated) Admission/Observation Consideration of admission/observation: Escalation of care including admission/observation considered Lab Data MDM Lab Attestation statement: I reviewed the patient's lab results. negative Flu, covid, rsv and strep Labs: Lab Results 06/12/25 Range/Units 13:44 Influenza Type A (PCR) NEGATIVE (Negative) Influenza Type B (PCR) NEGATIVE (Negative) RSV RNA Qual (PCR) NEGATIVE (Negative) SARS-CoV-2 RNA (RT-PCR) NEGATIVE (Negative) S. pyogenes GrpA PONCHO Negative (Negative) Tests considered The following testing was considered but not selected: CXR but lungs clear Prescription Management I considered prescription management with: Antiviral and Antibiotic not indicated Chronic Conditions Patient?s care impacted by: Other Social Determinants Patient?s care significantly limited by Social Determinants of Health including: Other Social Determinant of Health Discharge Plan Discharge Clinical Impression: Acute cough, Acute pharyngitis Patient Disposition: Home, Self-Care Instructions: Pharyngitis (ED) Additional Instructions: You likely have viral pharyngitis.?? Your strep , COVID, flu, and RSV was negative. You may take Tylenol and/or Motrin as needed. Salt water gargles may help reduce pain and draw out the infection. Over the counter lozenges can also be helpful. Warm tea with honey can be helpful You may use an over the counter chloraseptic spray to help with the sore throat. DO NOT consume any sharp food or food at the extremes of temperature after using this spray as it will numb your throat. Drink plenty of fluids. If you develop any worsening symptoms, trouble swallowing, fever, pain opening the jaw, neck stiffness, or any other new, concerning symptoms please return. Prescriptions: New lidocaine HCl [Lidocaine Viscous] 2 % solution 5 ml mucous membrane QID PRN (Reason: pain) Qty: 100 0RF Rx Instructions: swish and swallow benzonatate 200 mg capsule 200 mg PO TID PRN (Reason: cough) Qty: 21 0RF No Action oseltamivir [Tamiflu] 75 mg capsule 75 mg PO Q12H 5 Days Qty: 10 0RF ibuprofen 600 mg tablet 600 mg PO Q6H PRN (Reason: fever or pain) Qty: 30 0RF naproxen 500 mg tablet 500 mg PO BID PRN (Reason: pain) Qty: 20 0RF guaifenesin 600 mg tablet extended release 12hr 600 mg PO BID PRN (Reason: cough) Qty: 20 0RF acetaminophen 500 mg tablet 500 mg PO Q6H PRN (Reason: fever or pain) Qty: 30 0RF folic acid 400 mcg tablet 400 mcg PO DAILY Qty: 60 0RF Interventions: ED Discharge Assessment Last Done: 06/12/25 16:17 Discharge Date/Time: 06/12/25 16:17 Print Language: Djiboutian
[2025-06-12 14:21] LABS: IDNOW Serial# 08D9AD1C; Strep A Nucleic Acid Negative (Negative)
[2025-06-12 14:47] LABS: Resp Syncy Virus RNA Qual PCR NEGATIVE (Negative); SARS COV2 PCR INHOUSE NEGATIVE (Negative)
[2025-06-12 16:17] VITALS: BP 119/73; PULSE 98; RESP 16; TEMP 36.8; O2SAT 98
--- OUTSIDE RECORDS SUMMARY | 2025-06-12 17:46 | XMS_ITS | Encounter Summary ---
Author Organization [employer] Address [address] [place] [address] [address] [place] [address] Care Team Providers Care Electronic Warfare Operator Name Role Phone Rubia Ramirez MD Primary Care Provider + Encounter Details Date Type Department Care Team (Late st Contact Info) Description 10/03/2022 Orders Only [facility] [address] [place] [address] [phone] Rubia Ramirez MD [address] [place], [place] [phone] Encounter for prescription of emergency contraception (Primary Dx) Social History Tobacco Use Types Packs/Day Years Used Date Smoking Tobacco: Never Smokeless Tobacco: Never Alcohol Use Standard Drinks/Week Comments Never 0 (1 standard drink = 0.6 oz pur e alcohol) Comments Unknown Sex and Gender Information Value Date Recorded Sex Assigned at Female 04/14/2022 10:31 AM EDT Legal Sex Female 10:31 AM EDT Gender Identity Female 04/14/2022 10:31 AM EDT Sexual Orientation Don't know 04/14/2022 10 :31 AM EDT COVID-19 Exposure Response Date Recorded In the last 10 days, have yo u been in contact with someone who was confirmed or suspected to have Coronavirus/COVID-19? No / Unsure 10/03/2022 11:10 AM EDT documented as of this encounter Plan of Treatment Not on file documented as of this encounter Visit Diagnoses Diagnosis Encounter for prescription of emergency contraception- Primary documented in this encounter Care Teams Electronic Warfare Operator Relationship Specialty Start Date End Date Rubia Ramirez MD [address] [place] [address] [phone] PCP - General Family Medicine 02/22/18 Libby Lema Exterior DesignerPowerhouse Oiler 03/09/25 documented as of this encounter
--- OUTSIDE RECORDS SUMMARY | 2025-06-12 17:46 | XMS_ITS | Encounter Summary ---
Author Organization [employer] Address [address] [place] [address] [address] [place] [address] Care Team Providers Care Shellfish Harvester Name Role Phone Rubia Ramirez MD Primary Care Provider + Reason for Visit * Reason Onset Date Comments Appointment Request 09/23/2022 Encounter Details Date Type Department Care Team (Late st Contact Info) Description 09/23/2022 Telephone [facility] [address] [place] [address] [phone] Rubia Ramirez MD [address] [place], [place] [phone] Appointment Request Social History Tobacco Use Types Packs/Day Years [...] Don't know 04/14/2022 10 :31 AM EDT documented as of this encounter Miscellaneous Notes * Telephone Encounter - Piper Smith RN - 09/23/2022 1:00 PM EDT Noted pt. Received initial DEPO 03/20/23, did not return for RV. TC placed to pt., pt. Confirms lastdepo received was on this date. Pt. Reports no alternative form of contraception since. Pt. ReportsLMP was 09/01/22 and was light flow. Pt. Reports she would like to restart depo. Pt. Agrees to NF 10/01 at 10am with Red Team RN. Advised pt. Urine test would be performed at appt. And she will be asked to take EC if pt. Has had sexual intercourse int he 5 days prior to appt. Advised pt. Rxfor depo is still active from Feb. And requested pt. Bring rx to appt. Pt. Verbalizes understanding. Please place the standing order for pt.'s depo, I pended the order. * Telephone Encounter - Ezra Aguilera - 09/23/2022 9:51 AM EDT Tc from pt requesting an appt for Depo Shot. Please contact pt at [phone] documented in this encounter Plan of Treatment Not on file documented as of this encounter Visit Diagnoses Diagnosis Encounter for surveillance of injectable contraceptive documented in this encounter Care Teams Shellfish Harvester Relationship Specialty Start Date End Date Rubia Ramirez MD [address] [place] [phone] PCP - General Family Medicine 02/22/18 Libby Lema Survival Equipment RepairerShellfish Grower 03/09/25 documented as of this encounter
--- OUTSIDE RECORDS SUMMARY | 2025-06-12 17:46 | XMS_ITS | Encounter Summary ---
Author Organization [employer] Address [address] [place] [address] [address] [place] [address] Care Team Providers Care Nicker Name Role Phone Rubia Ramirez MD Primary Care Provider + Reason for Visit * Reason Onset Date Comments Appointment Request 10/01/2022 Encounter Details Date Type Department Care Team ([facility] st Contact Info) Description 10/01/2022 Telephone [facility] [address] [place], [place] [phone] Rubia Ramirez MD [address] [place], [place] [phone] Appointment Request Social History Tobacco Use Types [...] encounter Miscellaneous Notes * Telephone Encounter - Lisa Stephens - 10/02/2022 2:40 PM EDT Tc from patient re calling in regards to message below. * Telephone Encounter - Pascual Gan - 10/01/2022 3:51 PM EDT Tc from pt requesting to R/S appt on 10/01/22 ( depo- last received 2021 ) Please contact pt at [phone] documented in this encounter Plan of Treatment Not on file documented as of this encounter Visit Diagnoses Not on filedocumented in this encounter Care Teams Nicker Relationship Specialty Start Date End Date Rubia Ramirez MD [address] [place] [phone] PCP - General Family Medicine 02/22/18 Libby Lema Seedling SorterSupervisor Type Photography 03/09/25 documented as of this encounter
--- OUTSIDE RECORDS SUMMARY | 2025-06-12 17:46 | XMS_ITS | Clinical Summary ---
Author Organization [employer] Address [address] [place] [address] [address] [place] [address] Care Team Providers Care Office Aide Name Role Phone Rubia Ramirez MD Primary Care Provider + Allergies No known active allergies Medications * This document contains information received from the source organization and may not represent a complete record from that organization. loratadine (Claritin) 10 MG tabletIndicatio ns:Seasonal allergic rhinitis due to other allergic trigger Take 1 tablet (10 mg) by mouth Once daily as needed for allergies. 90 tablet 1 4 Active fluticasone (Flonase) 50 MCG/ACT nasal sprayIndication s:Seasonal allergic rhinitis due to other allergic trigger Administer 1-2 sprays into each nostril Once daily as needed for rhinitis or allergies. Shake gently. Before first use, prime pump. After use, clean tip and replace cap. 16 g 4 Active Vit-Fe Fumarate-FA (PNV Plus Multivitamin) 27-1 MG tablet Take 1 tablet by mouth Once per day. 90 tablet 3 4 Active medroxyPROGESTE Errol (Depo-Provera) 150 MG/ML injection Inject 1 mL (150 mg) into the muscle every 3 (three) months. 1 mL 3 5 Active Active Problems Problem Noted Date Diagnosed Date Subacute vaginitis 04/03/2025 Assessment & Plan (04/04/2025 1:39 PM EDT): It seems to be related to vaginal candidiasis, Rx fluconazole tablet x 1 dose and follow-up vaginal swab results. STI testing done, patient advised to repeat testing in 3 months Advised to use condom at all times Encounter for surveillance of injectable contrac eptive 04/03/2025 Assessment & Plan (04/04/2025 1:39 PM EDT): Depo- injection today Encounter for preconception consultation 025 Encounter for initial prescription of contracept trina 01/22/2025 Encounter for preventive health examination 02/15 Assessment & Plan (03/14/2024 2:14 PM EDT): Discussed with patient re increase fresh fruit and vegetable intake. Counseled re moderate exercise as tolerated, up to 20min/d Patient feels safe at home. PAP smear: UTD, next one due 2025. Eye exam: UTD, next one due 2025 Lipids/FBS: UTD, next one due on 2026 Vaccinations: Declined Influenza or covid vax today. Advised to update Td as well, will get Hep titers at OB. Dental visit: Overdue, advised to do dental cleaning after delivery. Acute vaginitis 03/14/2024 Assessment & Plan (03/14/2024 2:16 PM EDT): Most likely candidiasis, we'll rx clotrimazole cream and fu vag swab results. Advised to use condom for intercourse until she gets full results. FU with OB test positive 01/11/2024 Assessment & Plan (01/12/2024 9:42 AM EDT): POS test results d/w patient, kids were taken to a different room to wait while I was with her. 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 SDOH team will come and discuss with her housing options. Fatty liver 12/23/2023 Assessment & Plan (12/23/2023 9:25 AM EDT): Seen on US Counseled on weight loss Adjustment disorder with mixed anxiety and depre ssed mood 02/13/2023 Assessment & Plan (02/17/2023 12:50 PM EDT): Patient with symptoms of anhedonia, depressed, sleep disturbance, poor appetite, low self-esteem, difficulty concentrating, over worrying, on edge, restless, trouble relaxing and irritability. Symptoms presented in the context of struggling with of loved one and difficult interpersonal relationship with partner. Patient will benefit from receiving OP individual therapy and practicing grounding techniques. At this time Selina Harvey meets criteria for Visit Diagnoses: Problem List Items Addressed This Visit Other Adjustment disorder with mixed anxiety and depressed mood Other Visit Diagnoses Complicated grief - Primary Anxiety Relevant Orders Referral to Behavioral Health Patient ready to address current needs Yes Strengths include her children and strong savi. PLAN: 1. Follow up with [facility]: Not recommended for follow-up 2. Patient goal is to build healthy relationships and process/accept her brother's . 3. Behavioral Recommendations a. Referral to OP individual therapy b. Incorporate self-care and grounding techniques into daily routine c. Improve coping skills Anxiety disorder 02/02/2023 Assessment & Plan (02/02/2023 10:53 AM EDT): Hx anxiety, has PTSD Sp finding her brother last year at her own home. Current sxs may be triggered by situation with her partner. Feels safe at home, able to reach out for safety. Refer to , fu win 3m or earlier prn Vaginal discharge 01/31/2023 Assessment & Plan (01/11/2024 2:22 PM EDT): Most likely vaginal candidiasis. Rx Clotrimazole cream x 7d Check vaginal swab and fu abn results. Assessment & Plan (01/31/2023 10:56 AM EDT): RO STI, I told her it could also be BV. We'll schedule OV appt to get vag swab. Counseled re protected intercourse Bacterial vaginitis 11/11/2022 Migraine without aura and wi thout status migrainosus, not intractable 11/05/2022 Assessment & Plan (11/05/2022 11:14 AM EDT): Recommended the use of Excedrin migraine [id number] until headache resolves completely FU in 1 month I gave her a copy of optometry referral for last year for her to make an appointment. Exercise counseling 11/05/2022 Dietary counseling 11/05/2022 Acute cystitis without hematuria 11/05/2022 Assessment & Plan (11/05/2022 11:16 AM EDT): UA shows UTI pt asymptomatic at this time Order culture. No need for further treatment at this time Risk for sexually transmitted disease 11/05/2022 Assessment & Plan (02/02/2023 10:51 AM EDT): Counseled to use condom at all times, feels safe at home, she has crisis number. Check STI testing today, repeat in 3mo Assessment & Plan (01/31/2023 10:55 AM EDT): Counseled to use condom at all times, denies sexual violence. Labs for STIs, she will come to see me at the [facility] in 2d to check for BV. Assessment & Plan (11/05/2022 11:15 AM EDT): counseled regarding use of condoms at all times. Pt had self swab today and will complete testing at the lab no current vaginal discharge or pelvic pain Encounter for prescription of emergency contrace ption 10/03/2022 Left ovarian cyst 06/27/2022 Assessment & Plan (06/27/2022 3:53 PM EST): Order fu pelvic US. Use tylenol/naproxen prn DUB (dysfunctional uterine bleeding) 06/27/2022 Assessment & Plan (11/05/2022 11:17 AM EDT): Most likely related to being off contraception, period after depo provera reconsult PRN DUB or Pelvic pain as she has history of ovarian cysts Assessment & Plan (06/27/2022 3:51 PM EST): Neg test today. Order pelvic US and STI testing. Fu in 4-6w Atypical chest pain 05/22/2022 Obesity (BMI 30-39.9) 05/22/2022 Chronic low back pain 05/22/2022 Cobalamin deficiency 05/22/2022 Decreased hearing 05/22/2022 Drug-induced obesity 05/22/2022 Pain in female pelvis 05/22/2022 Assessment & Plan (06/27/2022 3:51 PM EST): ? Ovarian cyst? Fibroid Order pelvic US, STI testing. Continue off depo for now. Fu in 4-6w Visual impairment 04/13/2018 Idiopathic scoliosis 04/14/2017 Mood disorder 04/14/2017 Assessment & Plan (02/02/2023 10:08 AM EDT): Having flashbacks form her brother's passing last year, likely triggereed by current anxiety. Refer again to . She feels safe at home, has crisis number Morbid obesity (CMS/HCC) 04/14/2017 Encounters Date Type Department Care Team Description 04/04/2025 Patient Outreach [facility] [address] [place] [phone] Rubia Ramirez MD Care Coordination (W outreach for SDOH housing search-referral completed ) 04/03/2025 2:30 PM EDT Office Visit [facility] [address] [place] [address] [phone] Rubia Ramirez MD Subacute vaginitis (Primary Dx); Encounter for surveillance of injectable contraceptive 04/03/[address] [phone] Rubia Ramirez MD 04/03/2025 Travel 03/31/[address] [phone] Rubia Ramirez MD Chart Prep 03/23/2025 Patient Outreach [facility] [address] [place] [phone] Rubia Ramirez MD Pre-visit Planning ((Unable to reach for PVP screening and or LVM) to be completed in office) from Last 3 Months Immunizations Immunization Administration Dates Next Due DTaP 09/21/1997,12/31/1994,04/15/1994 ,1993,1993 HPV 9-Valent 04/01/2018 Hep B, adult 12/31/1994,1993,1993 HiB, unspecified 12/31/1994,04/15/1994, 4 Hib (PRP-T) 1993 IPV 12/16/1997,04/15/1994,1993 ,1993 MMR 09/19/1997,12/31/1994 Family History Medical History Relation Name Comments Cataracts Father Relation Name Status Comments Father Social History Tobacco Use Types Packs/Day Years Used Date Smoking Tobacco: Never Passive Smoke Exposure: Never Smokeless Tobacco: Never Tobacco Cessation:Counseling Given: Not Answered Alcohol Use Standard Drinks/Week Comments Not Currently 0 (1 standard drink = 0.6 oz pur e alcohol) rare Depression Answer Date Recorded Patient Health Questionnaire-9 Score 4 04/03/2025 Patient Health Questionnaire-9 Score 4 04/03/2025 Last PHQ-9: Questionnaire Data Not on file 1 Housing Stability Answer Date Recorded What is your housing situation today? I have domingo ba 04/03/[address] you li ve. Do you have problems with any of the following? None of the above 04/03/2025 Food Insecurity Answer Date Recorded Within the past 12 months, y ou worried that your food would run out before you got money to buy more: Sometimes True 2024 Within the past 12 months,th e food you bought just didn't last and you didn't have enough money to get more: Sometimes True 04/03/2025 Transportation Answer Date Recorded In the past 12 months, has l ack of transportation kept you from medical appts, meetings, work or from getting things needed for daily living? No 04/03/2025 Utilities Answer Date Recorded In the past 12 months, has t he electric, gas, oil or water company threatened to shut off services in your home? No 04/03/2025 Depression Answer Date Recorded Patient Health Questionnaire-2 Score 1 04/03/2025 Internet Access Answer Date Recorded Internet Access Q1 Yes 04/03/2025 Internet Access Q2 Not on file 04/03/2025 Comments Unknown Sex and Gender Information Value Date Recorded Sex Assigned at Female 04/14/2022 10:31 AM EDT Legal Sex Female 10:31 AM EDT Gender Identity Female 04/14/2022 10:31 AM EDT Sexual Orientation Don't know 04/14/2022 10 :31 AM EDT Last Filed Vital Signs Vital Sign Reading Time Taken Comments Blood Pressure 110/80 04/03/2025 2:56 PM EDT Pulse 99 04/03/2025 2:56 PM EDT Temperature 37.3 C (99.1 F) 04/03/2025 2:56 PM EDT Respiratory Rate 20 04/03/2025 2:56 PM EDT Oxygen Saturation 99% 04/03/2025 2:56 PM EDT Inhaled Oxygen Concentration - - Weight 85.4 kg (188 lb 3.2 oz) 04/03/2025 2:56 P M EDT Height 149.9 cm (4' 11 ) 04/03/2025 2:56 PM EDT Body Mass Index 38.01 04/03/2025 2:56 PM EDT Plan of Treatment Health Maintenance Due Date Last Done Comments Family Planning (PISQ) 2008 Hepatitis A Vaccines (1 of 2 - Risk 2-dose series) 2012 HPV Vaccines (2 - 3-dose series) 04/29/2018 04/01/2018, 04/01/2018 Colposcopy 04/02/2024 04/01/2024 COVID-19 Vaccine ( season) 2025 Influenza Vaccine (#1) 2025 Alcohol/Substance Use Screening 01/18/2026 01/18/2025 Depression Screening 04/03/2026 04/03/2025, 04/03/20 Disability Screening 04/03/2026 04/03/2025 SDOH Screening 04/03/2026 04/03/2025 Tobacco Screening 04/03/2026 04/03/2025 Lipid Panel 12/17/2028 12/18/2023 Cervical Cancer Screening 03/15/2029 HPV/Cotest 03/15/2029 03/15/2024, 03/17/2021 Pap Smear 03/15/2029 03/15/2024, 03/17/2021 DTaP/Tdap/Td Vaccines (7 - Td or Tdap) 06/22/2034 06/22/2024, 09/21/1997, 12/31/1994, Additional history exists Zoster Vaccines (1 of 2) 2043 RSV Patients and Patients Aged 60 years or older (1 - 1-dose 75+ series) 2068 HIB Vaccines Completed 12/31/1994, 06/1993, 1993, Additional history exists Hepatitis B Vaccines Completed 12/31/1994, 1993, 1993 IPV Vaccines Completed 12/16/1997, 06/1993, 1993, Additional history exists HIV Screening Completed 02/02/2023, 01/2022, 06/05/2020, Additional history exists Hepatitis C Screening Completed 02/02/2023 , 02/20/2022, 07/06/2019 Meningococcal B Vaccine Aged Out No l onger eligible based on patient's age to complete this topic Meningococcal Vaccine Aged Out No alin barbara eligible based on patient's age to complete this topic Pneumococcal Vaccine: Pediatrics (0 to 5 Years) and At-Risk Patients (6 to 49) Years Aged Out No longer eligible based on patient's age to complete this topic RSV under 20 months Aged Out No longe r eligible based on patient's age to complete this topic Rotavirus Vaccines Aged Out No longer eligible based on patient's age to complete this topic Procedures Procedure Name Priority Date/Time Associated Diagnosis Comments SARS COV2/INFLUENZA A/B AND RSV RNA QL NAAT Routine 06/12/2025 1:44 PM EST STREP A NUCLEIC ACID Routine 06/12/2025 1:44 PM EST POCT , URINE Routine 04/03/2025 4:18 PM EDT Encounter for surveillance of injectable contraceptive BACTERIAL VAGINOSIS PANEL Routine 04/03/2025 3:49 PM EDT CHLAMYDIA/TRICHOMON /NEISSERIA GONORRHOEAE, PCR, URINE Routine 04/03/2025 3:48 PM EDT COLPOSCOPY Routine 04/01/2024 HM PAP/HPV Routine 03/15/2024 LIPID PANEL, STANDARD Routine 12/18/2023 12:11 PM EDT Fatty liver HEPATITIS PANEL, GENERAL Routine 02/02/2023 9:31 AM EDT Risk for sexually transmitted disease HIV ANTIBODY/ANTIGEN (VT DP) Routine 02/02/2023 9:31 AM EDT from Last 3 Months or Most Recently Relevant to Health Maintenance Results * Strep A Nucleic Acid (06/12/2025 1:44 PM EST) IDNOW SERIAL# [id number] [facility] Strep A Nucleic Acid Negative Negative [facility] Comment:All test results mus t be correlated with clinical findings.This test has not been evaluated for monitoring treatment ofinfection.Additional follow-up testing using the culture method isrequired if the result is negative and clinical symptomspersist, or in the event of an acute rheumatic feveroutbreak. 06/12/2025 1:44 PM EST 06/12/2025 1:55 PM EST us Generic External Data Provider LAB MICROBIOLOGY - GENERAL ORDERABLES Final Result [facility] [address] [place] [phone] * SARS-CoV-2 RNA, Influenza A/B, and RSV RNA, Ql NAAT (06/12/2025 1:44 PM EST) Influenza A PCR NEGATIVE Negative [facility] Influenza B PCR NEGATIVE Negative [facility] Resp Syncy Virus RNA Qual PCR NEGATIVE Negative [facility] SARS COV2 PCR NEGATIVE Negative [facility] Comment:All test results mus t be correlated with clinical findings.Negative results do not preclude SARS-CoV2, influenza Avirus, influenza B virus and/or RSV infectionand should not be used as the sole basis for treatment orother patient management decisions. Negative results must becombined with clinical observations, patient history, andepidemiological information.This test has not been evaluated for monitoring treatment ofinfection.This test has been authorized by the FDA under an EmergencyUse Authorization (EUA) for use by authorized laboratories.Testing performed on the [employer] GeneXpert utilizingreal-time RT-PCR.All SARS CoV2 and positive influenza A/B results arereported to [facility]. 06/12/2025 1:44 PM EST 06/12/2025 1:55 PM EST Generic External Data Provider LAB MICROBIOLOGY - GENERAL ORDERABLES Final Result [facility] [address] [place] [phone] * POCT Urine (04/03/2025 4:18 PM EDT) Pathologist [facility] Preg Test, Ur Negative Negative, Indeterminate, None Detected, Invalid, Specimen unsatisfactory for evaluation, Weakly Positive, 2+ QC Media Lot # [id number] Lot# Expiration Date [id number] Urine 04/03/2025 4:18 PM EDT Rubia Ramirez MD POINT OF CARE TEST ENTER /EDIT ORDERABLES Final Result * (ABNORMAL) Bacterial Vaginosis (04/03/2025 3:49 PM EDT) Pathologist [facility] TRICHOMONAS VAGINALIS DETECTION BY PCR NOT DETECTED Not Detect [facility] BACTERIAL VAGINOSIS DETECTION BY PCR POSITIVE(A) Negative [facility] Comment:The BV organism targ ets of the Xpert Xpress MVP test can becommensal in women; Xpert Xpress MVP positive results forbacterial vaginosis should be considered in conjunction withother clinical and patient information to determine thedisease status. Organisms that are not detected by the XpertXpress MVP test have also been reported to be associatedwith BV and aerobic vaginitis.The Xpert Xpress MVP test performance has not been evaluatedin patients under the age of 14. CATHY GROUP DETECTION BY PCR NOT DETECTED Not Detect [facility] Cathy glab krusei PCR NOT DETECTED Not Detect [facility] 04/03/2025 3:49 PM EDT 04/03/2025 5:27 PM EDT us Rubia Ramirez MD LAB MICROBIOLOGY - GENER AL ORDERABLES Final Result [facility] [address] [place] [phone] * Chlamydia/Trichomonas/Neisseria gonorrhoeae, PCR, Urine (04/03/2025 3:48 PM EDT) CT PCR, Urine NOT DETECTED Not Detect. [facility] Comment:A not detected test result does not exclude the possibilityof infection because test results can be affected byimproper specimen collection, concurrent antibiotic therapy,or the number of organisms in the specimen which may bebelow the sensitivity of the test. As with many diagnostictests, results from the Xpert CT/NG assay should beinterpreted in conjunction with other laboratory andclinical data available to the clinician.The Xpert CT/NG assay should not be used for the evaluationof suspected sexual abuse or for other medico-legalindications. Additional testing is recommended in anycircumstance when false positive or false negative resultscould lead to adverse medical, social or psychologicalconsequences. NG PCR, Urine NOT DETECTED Not Detect. [facility] Comment:A not detected test result does not exclude the possibilityof infection because test results can be affected byimproper specimen collection, concurrent antibiotic therapy,or the number of organisms in the specimen which may bebelow the sensitivity of the test. As with many diagnostictests, results from the Xpert CT/NG assay should beinterpreted in conjunction with other laboratory andclinical data available to the clinician.The Xpert CT/NG assay should not be used for the evaluationof suspected sexual abuse or for other medico-legalindications. Additional testing is recommended in anycircumstance when false positive or false negative resultscould lead to adverse medical, social or psychologicalconsequences. 04/03/2025 3:48 PM EDT 04/03/2025 5:47 PM EDT Rubia Ramirez MD LAB URINE ORDERABLES Fin al Result [facility] [address] [place] [phone] * Colposcopy (04/01/2024) Historical Provider IN CLINIC/BEDSIDE ORDERAB LES Final Result * (ABNORMAL) PAP/HPV (03/15/2024) Pap Smear 4. LSIL(A) 1. NILM HPV Detected(A ) Undetected, Indeterminate , Quantitative, Not Detected Historical Provider HEALTH MAINTENANCE Final Result * (ABNORMAL) Lipid Panel, Standard (12/18/2023 12:11 PM EDT) Triglycerides 87 <150 mg/dL [facility] Comment:Desirable Triglyceri de: less than 150 mg/dLBorderline High Triglyceride 150-199 mg/dLHigh Triglyceride: 200-499 mg/dLVery High Triglyceride: greater than or equal to 5OO mg/dL Cholesterol 140 <200 mg/dL [facility] Comment:Desirable Cholestero l: less than 200 mg/dLBorderline High Cholesterol: 200-239 mg/dLHigh Cholesterol: greater than 239 mg/dL LDL Cholesterol Calculated 83 <100 mg/dL [facility] Comment:Desirable LDL: less than 100 mg/dLNear Optimal/Above Optimal LDL: 110- 129 mg/dLBorderline High LDL: 130-159 mg/dLHigh LDL: 160-189 mg/dLVery High LDL: greater than or equal to 190 mg/dL HDL Cholesterol 40(L) >40 mg/dL [facility] Comment:Desirable HDL: great er than 40 mg/dL Note: This HDL assay may give artificially low results in patients with liver disease. Blood Venous blood specimen / Unknown 12/18/2023 12:11 PM EDT 12/18/2023 1:09 PM EDT us Rubi Evans MD LAB BLOOD ORDERABLES Final Res ult Performing Organization Address [facility] Co de Phone Number [facility] [address] [place] [phone] * HIV Ab/Ag (DEAN GALVAN) (02/02/2023 9:31 AM EDT) [facility] HIV AB/AG Nonreactive Nonreactive [facility] Comment:HIV-1 p24 Ag and/or HIV-1/HIV-2 Ab not detected.A test result that is nonreactive does not exclude thepossibility of exposure to or infection with HIV-1 and/orHIV-2. Nonreactive results in this assay for individualswith prior exposure to HIV-1 and/or HIV-2 may be due toantigen and antibody levels that are below the limit ofdetection of this assay.The [employer] Expediter HIV Ag/Ab Combo assay result andsupplemental assay results should be interpreted inconjunction with the patient's clinical presentation,history and other laboratory results. If the results areinconsistent with clinical evidence, additional testing issuggested to confirm the result. 02/02/2023 9:31 AM EDT 02/02/2023 11:16 AM EDT us Rubia Ramirez MD LAB BLOOD ORDERABLES Fin al Result Performing Organization Address [facility]/ZIP Co de Phone Number [facility] [address] [place] [phone] * Hepatitis Panel, General (02/02/2023 9:31 AM EDT) Hepatitis A IgM Nonreactive Nonreactive [facility] Comment:IgM antibodies to [place] V not detected; does not exclude earlyacute or recovered HAV infection. ~Hepatitis B Surface Antibody REACTIVE Nonreactive [facility] Comment:REACTIVE: > 11.99 mI U/mL Hepatitis B Core Antibody Nonreactive Nonreactive [facility] Hepatitis C Antibody Nonreactive Nonreactive [facility] Comment:Antibodies to HCV no t detected; does not exclude early acuteHCV infection. Hepatitis B Surface Ag Negative Negative [facility] Blood 02/02/2023 9:31 AM EDT 02/02/2023 11:16 AM EDT Rubia Ramirez MD LAB BLOOD ORDERABLES Fin al Result [facility] [address] [place] [phone] from Last 3 Months or Most Recently Relevant to Health Maintenance Insurance [employer] C3 Care Teams Office Aide Relationship Specialty Start Date End Date Rubia Ramirez MD [address] [place] [phone] PCP - General Family Medicine 02/22/18 Libby Lema Remote Broadcast TechnicianCommissary Superintendent 03/09/25
--- OUTSIDE RECORDS SUMMARY | 2025-06-12 17:46 | XMS_ITS | Encounter Summary ---
Author Organization [employer] Address [address] [place] [address] [address] [place] [address] Care Team Providers Care Alteration Specialist Name Role Phone Rubia Ramirez MD Primary Care Provider + Encounter Details Date Type Department Care Team (Late st Contact Info) Description 11/11/2022 Orders Only [facility] [address] [place] [id number] Rubia Ramirez MD [address] [place] [address] Bacterial vaginitis (Primary Dx) Social History Tobacco Use Types Packs/Day Years Used Date Smoking Tobacco: Never Smokeless Tobacco: Never Alcohol Use Standard Drinks/Week Comments Yes 0 (1 standard drink = 0.6 oz pur e alcohol) rare Comments Unknown Sex and Gender Information Value [...] suspected to have Coronavirus/COVID-19? No / Unsure 11/05/2022 10:15 AM EDT documented as of this encounter Plan of Treatment Not on file documented as of this encounter Visit Diagnoses Diagnosis Bacterial vaginitis- Primary Unspecified vaginitis and vulvovaginitis documented in this encounter Care Teams Alteration Specialist Relationship Specialty Start Date End Date Rubia Ramirez MD [address] [place] [address] PCP - General Family Medicine 02/22/18 Libby Lema Plant Health ManagerCar Retarder Operator 03/09/25 documented as of this encounter
== END 2025-06-12 16:17 | disposition home or self-care (01) ==
PROVIDERS: Physician Assistant Medical; Emergency Provider Emergency Medicine; PCP Internal Medicine
DX: J02.9 Acute pharyngitis, unspecified (principal); R50.9 Fever, unspecified; R07.89 Other chest pain; R05.9 Cough, unspecified; R51.9 Headache, unspecified; Z03.818 Encounter for observation for suspected exposure to other biological agents ruled out
CPT/HCPCS: 87637; 87651; 99282